=== PATIENT | female | born 1960 | race Caucasian/White ===

== ENCOUNTER 2019-10-03 03:21 | Observation (INO) | payer OTHER ==
[~2019-10-03] VITALS: Ht 167.6 cm; Wt 61.2 kg
[2019-10-03] MEDS ORDERED: ASPIRIN 325 MG TABLET ONE (03:41)
[2019-10-03 04:12] LABS: BASOPHILS % (AUTO) 0.3 % (0.0-5.0); EOSINOPHILS % (AUTO) 3.7 % (0.0-8.0); HEMATOCRIT 37.4 % (36-48); LYMPHOCYTES % (AUTO) 47.1 % (21.0-51.0); MEAN CORPUSCULAR HEMOGLOBIN 29.9 pg (27.0-33.0); MEAN CORPUSCULAR HGB CONC 33.2 g/dL (32.0-36.0); MEAN CORPUSCULAR VOLUME 90.1 fL (79-99); MONOCYTES % (AUTO) 6.3 % (3.0-13.0); NEUTROPHILS % (AUTO) 42.4 % (40.0-77.0); PLATELET COUNT (AUTO) 269 K/uL (130-400); RED BLOOD CELL COUNT(AUTO) 4.15 MIL/uL (4.00-5.50); RED CELL DISTRIBUTION WIDTH 12.7 % (11.0-15.5); WHITE BLOOD COUNT (AUTO) 8.9 K/uL (4.8-10.8)
[2019-10-03] MEDS ORDERED: DILTIAZEM HCL 125 MG/25 ML VIAL IV ONE (04:18)
[2019-10-03] MEDS ORDERED: SODIUM CHLORIDE 0.9% 100 ML IV ONE (04:19)
[2019-10-03 04:21] LABS: BILIRUBIN,TOTAL 0.2 mg/dL (0.2-1.0); CREATININE 0.8 mg/dL (0.5-1.5); POTASSIUM 4.1 mmol/L (3.5-5.1); TOTAL PROTEIN, SERUM 7.2 g/dL (6.0-8.3)
[2019-10-03 04:24] LABS: INR 0.94 (0.85-1.15); PARTIAL THROMBOPLASTIN TIME 25.4 SEC (26.3-35.5); PROTHROMBIN TIME 9.9 SEC (9.6-11.6)
[2019-10-03 04:31] LABS: B-TYPE NATRIURETIC PEPTIDE 48 pg/mL (0-100)
[2019-10-03] MEDS ORDERED: SODIUM CHLORIDE 0.9% 500ML 500 ML IV ONE (05:04)
[2019-10-03] MEDS ORDERED: MAG HYDROX/AL HYDROX/SIMETH ES 30 ML SUSP UDCUP PO PRN (05:45)
[2019-10-03] MEDS ORDERED: DILTIAZEM HCL 125 MG/25 ML 125 MG in SODIUM CHLORIDE 0.9% 100 ML IV SCH (05:45)
[2019-10-03] MEDS ORDERED: ONDANSETRON HCL 4 MG/2 ML VIAL IV PRN (05:45)
[2019-10-03] MEDS ORDERED: ACETAMINOPHEN 325 MG TAB PO PRN ×2 (05:45)
[2019-10-03 07:15] LABS: AMPHET/METH SCREEN,URINE NEGATIVE (NEGATIVE); BARBITURATE SCREEN, URINE NEGATIVE (NEGATIVE); BENZODIAZEPINES SCREEN,URINE POSITIVE (NEGATIVE); CANNABINOID SCREEN,URINE NEGATIVE (NEGATIVE); COCAINE SCREEN,URINE NEGATIVE (NEGATIVE); OPIATE SCREEN,URINE NEGATIVE (NEGATIVE); PHENCYCLIDINE SCREEN,URINE NEGATIVE (NEGATIVE)
[2019-10-03] MEDS ORDERED: ENOXAPARIN SODIUM 30 MG/0.3 ML SQ ONE (08:33)
[2019-10-03] MEDS ORDERED: SODIUM CHLORIDE 0.9% 1000ML 1,000 ML IV ONE (11:10)
[2019-10-03] MEDS ORDERED: SODIUM CHLORIDE 0.9% 250 ML IV ONE (11:11)
[2019-10-03 19:54] VITALS: BP 107/60
[2019-10-03] MEDS: ASPIRIN 325 MG TABLET PO SCH (22:40)
[2019-10-03] MEDS: ENOXAPARIN SODIUM 30 MG/0.3 ML SQ SCH (22:40)
[2019-10-03 23:07] VITALS: BP 115/62
[2019-10-04] MEDS: SODIUM CHLORIDE 0.9% 1000ML 1,000 ML IV SCH ×3 (00:35→13:55)
[2019-10-04 04:23] LABS: BASOPHILS % (AUTO) 0.3 % (0.0-5.0); EOSINOPHILS % (AUTO) 5.1 % (0.0-8.0); HEMATOCRIT 31.6 % (36-48); LYMPHOCYTES % (AUTO) 37.6 % (21.0-51.0); MEAN CORPUSCULAR HEMOGLOBIN 29.9 pg (27.0-33.0); MEAN CORPUSCULAR VOLUME 93.5 fL (79-99); MONOCYTES % (AUTO) 7.3 % (3.0-13.0); NEUTROPHILS % (AUTO) 49.5 % (40.0-77.0); PLATELET COUNT (AUTO) 216 K/uL (130-400); RED BLOOD CELL COUNT(AUTO) 3.38 MIL/uL (4.00-5.50); RED CELL DISTRIBUTION WIDTH 12.9 % (11.0-15.5); WHITE BLOOD COUNT (AUTO) 6.4 K/uL (4.8-10.8)
[2019-10-04 04:38] LABS: CREATININE 0.8 mg/dL (0.5-1.5); MAGNESIUM 2.1 mg/dL (1.80-2.40); POTASSIUM 4.2 mmol/L (3.5-5.1)
[2019-10-04 04:49] VITALS: BP 109/50
[2019-10-04 07:00] VITALS: BP 101/65
[2019-10-04] MEDS ORDERED: PROPAFENONE HCL 150 MG TABLET PO SCH (09:00)
[2019-10-04] MEDS: ASPIRIN 325 MG TABLET PO SCH (09:34)
[2019-10-04] MEDS: ENOXAPARIN SODIUM 30 MG/0.3 ML SQ SCH (09:36)
[2019-10-04] MEDS ORDERED: ASPI-1012 PO (10:11)
[2019-10-04] MEDS ORDERED: PROP150T28 PO (10:11)
[2019-10-04 11:00] VITALS: BP 110/69
[2019-10-04 15:00] VITALS: BP 112/79
== END 2019-10-04 18:02 | disposition home or self-care (01) ==
LOC: EDH 03:21 → EDHIP 05:45 → 2AH 19:28
PROVIDERS: ADMIT Internal Medicine; ATTEND Internal Medicine
DX: I48.0 Paroxysmal atrial fibrillation (principal); F32.9 Major depressive disorder, single episode, unspecified; F41.9 Anxiety disorder, unspecified; R42 Dizziness and giddiness; E87.0 Hyperosmolality and hypernatremia; Z79.899 Other long term (current) drug therapy; Z98.51 Tubal ligation status; Z88.2 Allergy status to sulfonamides; Z88.5 Allergy status to narcotic agent
CPT/HCPCS: 36415 ×2; 71045; 80048; 80053; 80305; 82550; 83735; 83880; 84439; 84443; 84481; 84484; 85025 ×2; 85610; 85730; 93005 ×3; 93306; 96360; 96361; 96372; 99291; G0378 ×36; J1650 ×2; J3490; J7030 ×3; J7040

== ENCOUNTER → 2021-05-06 | Outpatient (CLI) | payer BC, OTHER ==
[~2021-05-06] MED LIST: PROP150T28 PO
== END | disposition home or self-care (01) ==
LOC: RAH 14:04
PROVIDERS: ATTEND Family Medicine
DX: N28.1 Cyst of kidney, acquired (principal); N32.89 Other specified disorders of bladder
CPT/HCPCS: 74176

== ENCOUNTER → 2024-01-17 | Outpatient (CLI) | payer BC ==
[~2024-01-17] MED LIST changes: +APIX5TAB PO; +ARIP5TAB30 PO; +CEFD300C3 PO; +DIGO125T71 PO; +DRON400T7 PO; -PROP150T28 PO; +ROSU10TA28 PO; +SERT-439 PO
[2024-01-17 16:12] LABS: BASOPHILS # (AUTO) 0.02 K/uL (0.00-0.20); BASOPHILS % (AUTO) 0.3 % (0.0-5.0); EOSINOPHILS # (AUTO) 0.14 K/uL (0.00-0.70); EOSINOPHILS % (AUTO) 2.2 % (0.0-8.0); HEMATOCRIT 36.4 % (36-48); IMMATURE GRANULOCYTE ABSOLUTE 0.01 K/uL (0-1); LYMPHOCYTES # (AUTO) 2.6 K/uL (1.0-4.8); LYMPHOCYTES % (AUTO) 40.8 % (21.0-51.0); MEAN CORPUSCULAR HEMOGLOBIN 31.4 pg (27.0-33.0); MEAN CORPUSCULAR HGB CONC 32.7 g/dL (32.0-36.0); MONOCYTES # (AUTO) 0.4 K/uL (0.1-1.0); MONOCYTES % (AUTO) 6.7 % (3.0-13.0); NEUTROPHILS # (AUTO) 3.2 K/uL (1.8-7.7); NEUTROPHILS % (AUTO) 49.8 % (40.0-77.0); PLATELET COUNT (AUTO) 213 K/uL (130-400); RED BLOOD CELL COUNT(AUTO) 3.79 MIL/uL (4.00-5.50); RED CELL DISTRIBUTION WIDTH 13.7 % (11.0-15.5); WHITE BLOOD COUNT (AUTO) 6.4 K/uL (4.8-10.8)
== END | disposition home or self-care (01) ==
LOC: LAB 11:42
PROVIDERS: ATTEND Internal Medicine Cardiovascular Disease
DX: D64.89 Other specified anemias (principal)
CPT/HCPCS: 36415; 85025

== ENCOUNTER 2024-02-24 07:34 | Emergency (ER) | payer BC, MEDICARE ==
[~2024-02-24] VITALS: Ht 167.6 cm; Wt 65.8 kg
[~2024-02-24 07:34] MED LIST changes: -ROSU10TA28 PO; +ROSU10TA72 PO
[2024-02-24 07:53] LABS: BASOPHILS # (AUTO) 0.02 K/uL (0.00-0.20); BASOPHILS % (AUTO) 0.2 % (0.0-5.0); EOSINOPHILS # (AUTO) 0.12 K/uL (0.00-0.70); EOSINOPHILS % (AUTO) 1.4 % (0.0-8.0); HEMATOCRIT 40.5 % (36-48); IMMATURE GRANULOCYTE ABSOLUTE 0.01 K/uL (0-1); LYMPHOCYTES # (AUTO) 3.1 K/uL (1.0-4.8); MEAN CORPUSCULAR HEMOGLOBIN 30.6 pg (27.0-33.0); MEAN CORPUSCULAR HGB CONC 33.8 g/dL (32.0-36.0); MEAN CORPUSCULAR VOLUME 90.6 fL (79-99); MONOCYTES # (AUTO) 0.6 K/uL (0.1-1.0); MONOCYTES % (AUTO) 7.6 % (3.0-13.0); NEUTROPHILS # (AUTO) 4.5 K/uL (1.8-7.7); NEUTROPHILS % (AUTO) 53.7 % (40.0-77.0); PLATELET COUNT (AUTO) 232 K/uL (130-400); RED BLOOD CELL COUNT(AUTO) 4.47 MIL/uL (4.00-5.50); RED CELL DISTRIBUTION WIDTH 13.4 % (11.0-15.5); WHITE BLOOD COUNT (AUTO) 8.4 K/uL (4.8-10.8)
[2024-02-24 08:05] LABS: CREATININE 0.9 mg/dL (0.5-1.0); POTASSIUM 4.6 mmol/L (3.5-5.1)
[2024-02-24 08:12] LABS: BILIRUBIN,TOTAL 0.3 mg/dL (0.2-1.0); DIGOXIN 0.46 ng/mL (0.50-2.00); TOTAL PROTEIN, SERUM 7.6 g/dL (6.0-8.3)
[2024-02-24] MEDS: ADENOSINE 6MG VIAL IV ONE ×2 (08:23→08:24)
[2024-02-24 08:25] LABS: B-TYPE NATRIURETIC PEPTIDE 324 pg/mL (0-100)
[2024-02-24] MEDS ORDERED: AMIODARONE 900MG VIAL 450 MG in DEXTROSE 5%-WATER 250 ML IV PRN (08:30)
[2024-02-24] MEDS ORDERED: AMIODARONE 900MG VIAL 900 MG in DEXTROSE 5%-WATER 200 ML IV PRN (08:30)
[2024-02-24] MEDS ORDERED: AMIODARONE 900MG VIAL 150 MG in DEXTROSE 5%-WATER 100 ML IV PRN (08:30)
[2024-02-24] MEDS: VERAPAMIL HCL 240 MG SRTAB PO SCH (09:11)
[2024-02-24] MEDS: PROPOFOL 1000 MG/100 ML 0 ML IV ONE (09:46)
[2024-02-24] MEDS: PROPOFOL 10 MG/ML 20ML VIAL IV ONE (10:22)
[2024-02-24 11:50] VITALS: BP 127/62; PULSE 68; RESP 17; O2SAT 97
[2024-02-24] MEDS ORDERED: SERT-440 PO ×2 (16:38)
[2024-02-24] MEDS ORDERED: ARIP5TAB16 PO ×2 (16:38)
[2024-02-24] MEDS ORDERED: VERA120T20 PO ×2 (16:38)
[2024-02-24] MEDS ORDERED: TEMA15CA PO ×2 (16:38)
[2024-02-24] MEDS ORDERED: FERR324T10 PO ×2 (16:38)
== END 2024-02-24 12:16 | disposition home or self-care (01) ==
LOC: EDH 07:34
DX: I48.91 Unspecified atrial fibrillation (principal); Z79.899 Other long term (current) drug therapy; Z98.890 Other specified postprocedural states; Z88.2 Allergy status to sulfonamides; Z88.5 Allergy status to narcotic agent
CPT/HCPCS: 99284; 96374; 71045; 80162; 82550; 84484 ×2; 80053; 83880; 85025; 36415; 93005 ×3; J0153; J2704; J3490

== ENCOUNTER 2024-02-28 07:22 | Inpatient (IN) | payer BC, MEDICARE ==
[2024-02-24 14:59] LABS: BASOPHILS # (AUTO) 0.02 K/uL (0.00-0.20); BASOPHILS % (AUTO) 0.3 % (0.0-5.0); EOSINOPHILS # (AUTO) 0.15 K/uL (0.00-0.70); EOSINOPHILS % (AUTO) 2.1 % (0.0-8.0); HEMATOCRIT 37.4 % (36-48); IMMATURE GRANULOCYTE ABSOLUTE 0.02 K/uL (0-1); LYMPHOCYTES # (AUTO) 2.5 K/uL (1.0-4.8); LYMPHOCYTES % (AUTO) 35.4 % (21.0-51.0); MEAN CORPUSCULAR HEMOGLOBIN 30.6 pg (27.0-33.0); MEAN CORPUSCULAR HGB CONC 33.2 g/dL (32.0-36.0); MEAN CORPUSCULAR VOLUME 92.3 fL (79-99); MONOCYTES # (AUTO) 0.5 K/uL (0.1-1.0); NEUTROPHILS # (AUTO) 3.9 K/uL (1.8-7.7); NEUTROPHILS % (AUTO) 54.9 % (40.0-77.0); PLATELET COUNT (AUTO) 231 K/uL (130-400); RED BLOOD CELL COUNT(AUTO) 4.05 MIL/uL (4.00-5.50); RED CELL DISTRIBUTION WIDTH 13.6 % (11.0-15.5)
[2024-02-24 15:05] VITALS: BP 97/54; PULSE 77; RESP 18
[2024-02-24 15:16] LABS: CREATININE 1.1 mg/dL (0.5-1.0); POTASSIUM 3.6 mmol/L (3.5-5.1)
[2024-02-24 15:24] LABS: INR <= 0.93 (0.85-1.15)
[2024-02-24 15:26] LABS: PARTIAL THROMBOPLASTIN TIME 26.3 SEC (26.3-35.5)
[2024-02-28] VITALS (29 sets, daily range): BP systolic 94–139; BP diastolic 53–93; PULSE 63–172; RESP 14–20; O2SAT 97–98
[~2024-02-28] VITALS: Ht 167.6 cm; Wt 69.2 kg
[~2024-02-28 07:22] MED LIST changes: +ARIP5TAB16 PO; +FERR324T10 PO; +SERT-440 PO; +TEMA15CA PO; +VERA120T20 PO
[2024-02-28] MEDS ORDERED: MIDAZOLAM HCL 1 MG/ML 2ML VIAL ONE (08:00)
[2024-02-28] MEDS ORDERED: PROPOFOL 10 MG/ML 20ML VIAL IV ONE (08:00)
[2024-02-28] MEDS ORDERED: ROCURONIUM BROMIDE 10MG/1ML 5ML VL ONE (08:00)
[2024-02-28] MEDS ORDERED: FENTANYL CITRATE PF 50 MCG/1 ML 2ML VIAL ONE ×2 (08:00→08:20)
[2024-02-28] MEDS ORDERED: HEPARIN 10,000 UNIT/10ML (1,000 UNIT/ML) VIAL ONE ×2 (08:05→09:25)
[2024-02-28] MEDS ORDERED: LIDOCAINE HCL 400MG/20ML VIAL ONE (08:05)
[2024-02-28] MEDS ORDERED: PHENYLEPHRINE HCL 10 MG/ML 1ML VIAL IV ONE ×2 (08:11→13:25)
[2024-02-28] MEDS: 0.9%NACL 1000ML 1,000 ML IV ONE (08:12)
[2024-02-28] MEDS ORDERED: ATROPINE 1MG SYG IVP ONE (13:14)
[2024-02-28 13:25] LABS: ABG BASE EXCESS -3.7 mmol/L (-2.0-3.0); ABG HCO3 20.2 mmol/L (21.0-28.0); ABG OXYGEN SATURATION 99.4 % (95.0-99.0); ABG PCO2 33 mmHg (32-45); ABG PH 7.401 (7.35-7.450); CARBON MONOXIDE 0.2; HHb 0.6; PO2, ARTERIAL BG 385.8 mmHg (83.0-108.0); VENT MODE, BG CATH LAB VENT (ROOM AIR)
[2024-02-28] MEDS ORDERED: PROTAMINE SULFATE 10 MG/ML 5 ML VIAL ONE (13:39)
[2024-02-28] MEDS ORDERED: GLYCOPYRROLATE 0.2 MG/ML 5 ML VIAL ONE (14:11)
[2024-02-28] MEDS ORDERED: NEOSTIGMINE METHYLSULFATE 1MG/ML IV ONE (14:11)
[2024-02-28] MEDS: DILTIAZEM 25MG INJ IVP PRN (16:23)
[2024-02-28] MEDS ORDERED: DILTIAZEM IV PRN (16:30)
[2024-02-28] MEDS ORDERED: [UNRECOGNIZED DRUG - OTHER] IV PRN (16:30)
[2024-02-28] MEDS: AMIODARONE 900MG VIAL 150 MG in DEXTROSE 5%-WATER 100 ML IV SCH ×2 (17:15→19:57)
[2024-02-28] MEDS: AMIODARONE 900MG VIAL 360 MG in DEXTROSE 5%-WATER 200 ML IV SCH (18:32)
[2024-02-28] MEDS: DILTIAZEM 125 MG/25 ML INJ 125 MG in 0.9%NACL 100ML 100 ML IV PRN (20:02)
[2024-02-28] MEDS ORDERED: NON-FORMULARY MEDICATION 1 EACH (Rosuvastatin Calcium 10 MG) PO SCH (21:00)
[2024-02-28] MEDS: APIXABAN 5 MG TABLET PO SCH (22:01)
[2024-02-28] MEDS: ATORVASTATIN 40 MG TABLET PO SCH (22:01)
[2024-02-28] MEDS: TEMAZEPAM 15 MG CAPSULE PO SCH (22:49)
[2024-02-28 22:50] LABS: HEMATOCRIT 37.2 % (36-48); MEAN CORPUSCULAR HEMOGLOBIN 30.9 pg (27.0-33.0); MEAN CORPUSCULAR HGB CONC 33.6 g/dL (32.0-36.0); MEAN CORPUSCULAR VOLUME 91.9 fL (79-99); RED BLOOD CELL COUNT(AUTO) 4.05 MIL/uL (4.00-5.50); RED CELL DISTRIBUTION WIDTH 13.2 % (11.0-15.5); WHITE BLOOD COUNT (AUTO) 10.9 K/uL (4.8-10.8)
[2024-02-28 23:00] LABS: CREATININE 0.8 mg/dL (0.5-1.0); MAGNESIUM 1.8 mg/dL (1.80-2.40)
[2024-02-28] MEDS ORDERED: AMIODARONE 900MG VIAL 540 MG in DEXTROSE 5%-WATER 300 ML IV SCH (23:00)
[2024-02-29] VITALS (8 sets, daily range): BP systolic 97–105; BP diastolic 52–69; PULSE 60–69; RESP 18; O2SAT 96–97
[2024-02-29] MEDS: AMIODARONE 900MG VIAL 540 MG in DEXTROSE 5%-WATER 300 ML IV ONE (02:08)
[2024-02-29] MEDS: MAGNESIUM 2GM PREMIX 50ML 50 ML IV ONE (03:35)
[2024-02-29] MEDS: MAGNESIUM 2GM PREMIX 50ML 50 ML IV PRN (03:49)
[2024-02-29] MEDS ORDERED: VERAPAMIL HCL 120 MG PO SCH (09:00)
[2024-02-29] MEDS ORDERED: NON-FORMULARY MEDICATION 1 EACH (Sertraline HCl 100 MG) PO SCH (09:00)
[2024-02-29] MEDS: SERTRALINE HCL 50 MG TABLET PO SCH (09:18)
[2024-02-29] MEDS: VERAPAMIL HCL 240 MG SRTAB PO SCH (09:18)
[2024-02-29] MEDS: ARIPIPRAZOLE 5 MG TABLET PO SCH (09:18)
[2024-02-29] MEDS: FERROUS FUMARATE 324 MG TABLET PO SCH (09:19)
[2024-02-29] MEDS ORDERED: AMIO200T68 PO ×2 (12:57)
[2024-02-29] MEDS ORDERED: VERA120T92 PO ×2 (12:57)
== END 2024-02-29 23:58 | disposition home or self-care (01) | DRG 274 ==
LOC: DAH 07:22 → OBSVTOIN 07:23 → DAH 07:23 → DAHIP 07:23 → 2AH 15:44
PROVIDERS: ADMIT Internal Medicine Cardiovascular Disease; ATTEND Internal Medicine Cardiovascular Disease
PROC: 5A2204Z Restoration of Cardiac Rhythm, Single (ICD-10-PCS; principal; 2024-02-24)
PROC: 02583ZZ Destruction of Conduction Mechanism, Percutaneous Approach (ICD-10-PCS; 2024-02-28)
PROC: 02K83ZZ Map Conduction Mechanism, Percutaneous Approach (ICD-10-PCS; 2024-02-28)
DX: I47.19 Other supraventricular tachycardia (principal); I48.0 Paroxysmal atrial fibrillation; E78.5 Hyperlipidemia, unspecified; I44.7 Left bundle-branch block, unspecified; F32.A Depression, unspecified; Z79.01 Long term (current) use of anticoagulants
CPT/HCPCS: 36415; 80048; 82435; 82803; 82947; 83605; 83735; 84132; 84295; 85018; 85025; 85027; 85347; 85610; 85730; 93005; 93462; 93653; 93655; 93662; A4344; A4606; C1893; C1894; G0378; J0282; J0461; J1644; J2250; J2371; J2704; J2710; J2720; J3010; J3475; J3490; J7030; J7060; A4215; A4216; A4221; A4222; A4223; A4649; A4663; C1731; C1732

== ENCOUNTER → 2024-04-23 | Outpatient (CLI) | payer BC, OTHER ==
[~2024-04-23] MED LIST changes: +AMIO200T68 PO; -ARIP5TAB30 PO; -CEFD300C3 PO; -DIGO125T71 PO; -DRON400T7 PO; -SERT-439 PO; -VERA120T20 PO; +VERA120T92 PO
[2024-04-23] MEDS: REGADENOSON 0.4 MG/5 ML PF SYG IVP ONE (12:51)
== END | disposition home or self-care (01) ==
LOC: SHCH 08:22
PROVIDERS: ATTEND Internal Medicine Cardiovascular Disease
DX: I48.0 Paroxysmal atrial fibrillation (principal)
CPT/HCPCS: 78452; 93017; J2785; A9500 ×2; 96374

== ENCOUNTER → 2024-05-21 | Outpatient (CLI) | payer OTHER ==
[2024-05-21 12:52] LABS: ALBUMIN 4.1 g/dL (3.5-5.0); BILIRUBIN,TOTAL 0.4 mg/dL (0.2-1.0); POTASSIUM 4.1 mmol/L (3.5-5.1); TOTAL PROTEIN, SERUM 7.8 g/dL (6.0-8.3)
== END | disposition home or self-care (01) ==
LOC: LAB 09:07
PROVIDERS: ATTEND Student in an Organized Health Care Education/Training Program
DX: I48.0 Paroxysmal atrial fibrillation (principal); R07.89 Other chest pain
CPT/HCPCS: 36415; 80053

== ENCOUNTER → 2024-05-31 | Outpatient (CLI) | payer OTHER ==
[~2024-05-31] MED LIST changes: +IOHEXOL 350 MG/ML 100ML INFUS..BTL IV ONE; +METOPROLOL TARTRATE 1 MG/ML 5ML VIAL IV ONE
== END | disposition home or self-care (01) ==
LOC: RAH 10:18
PROVIDERS: ATTEND Student in an Organized Health Care Education/Training Program
DX: R07.9 Chest pain, unspecified (principal); M47.815 Spondylosis without myelopathy or radiculopathy, thoracolumbar region
CPT/HCPCS: 75574; J3490; Q9967

== ENCOUNTER → 2024-06-29 | Outpatient (CLI) | payer OTHER ==
[~2024-06-29] MED LIST changes: -IOHEXOL 350 MG/ML 100ML INFUS..BTL IV ONE; -METOPROLOL TARTRATE 1 MG/ML 5ML VIAL IV ONE
== END | disposition home or self-care (01) ==
LOC: LAB 10:07
PROVIDERS: ATTEND Student in an Organized Health Care Education/Training Program
DX: I48.0 Paroxysmal atrial fibrillation (principal)
CPT/HCPCS: 36415; 83521; 84155; 84156; 84165; 84166

== ENCOUNTER → 2024-07-17 | Outpatient (CLI) | payer OTHER ==
[2024-07-17 12:02] LABS: BASOPHILS # (AUTO) 0.01 K/uL (0.00-0.20); BASOPHILS % (AUTO) 0.2 % (0.0-5.0); EOSINOPHILS # (AUTO) 0.15 K/uL (0.00-0.70); EOSINOPHILS % (AUTO) 2.9 % (0.0-8.0); HEMATOCRIT 35.5 % (36-48); LYMPHOCYTES # (AUTO) 1.9 K/uL (1.0-4.8); LYMPHOCYTES % (AUTO) 36.3 % (21.0-51.0); MEAN CORPUSCULAR HEMOGLOBIN 31.2 pg (27.0-33.0); MEAN CORPUSCULAR HGB CONC 32.4 g/dL (32.0-36.0); MEAN CORPUSCULAR VOLUME 96.2 fL (79-99); MONOCYTES # (AUTO) 0.4 K/uL (0.1-1.0); MONOCYTES % (AUTO) 6.9 % (3.0-13.0); NEUTROPHILS # (AUTO) 2.8 K/uL (1.8-7.7); NEUTROPHILS % (AUTO) 53.7 % (40.0-77.0); PLATELET COUNT (AUTO) 227 K/uL (130-400); RED BLOOD CELL COUNT(AUTO) 3.69 MIL/uL (4.00-5.50); RED CELL DISTRIBUTION WIDTH 12.8 % (11.0-15.5); WHITE BLOOD COUNT (AUTO) 5.2 K/uL (4.8-10.8)
[2024-07-17 12:22] LABS: ALBUMIN 3.9 g/dL (3.5-5.0); BILIRUBIN,TOTAL 0.3 mg/dL (0.2-1.0); POTASSIUM 4.2 mmol/L (3.5-5.1); THYROID STIMULATING HORMONE 1.12 uIU/mL (0.36-3.74); TOTAL PROTEIN, SERUM 7.6 g/dL (6.0-8.3)
== END | disposition home or self-care (01) ==
LOC: LAB 08:16
PROVIDERS: ATTEND Student in an Organized Health Care Education/Training Program
DX: E78.2 Mixed hyperlipidemia (principal); I48.0 Paroxysmal atrial fibrillation
CPT/HCPCS: 36415; 80053; 80061; 84443; 85025

== ENCOUNTER 2024-09-30 07:26 | Inpatient (IN) | payer OTHER ==
[~2024-09-30] VITALS: Ht 167.6 cm; Wt 68.5 kg
[~2024-09-30 07:26] MED LIST changes: -ARIP5TAB16 PO; +ARIP5TAB51 PO; +CRESTOR PO; +SERT-439 PO; -VERA120T92 PO
[2024-09-30] MEDS: dilTIAZem 25MG INJ IVP ONE (08:06)
[2024-09-30] MEDS: 0.9%NACL 1000ML 1,000 ML IV ONE (08:06)
--- NOTE | 2024-09-30 08:10 | NUR ---
PTS HR DECREASED TO 78 BPM AFTER CARDIZEM IV
[2024-09-30 08:13] LABS: BASOPHILS # (AUTO) 0.02 K/uL (0.00-0.20); BASOPHILS % (AUTO) 0.3 % (0.0-5.0); EOSINOPHILS # (AUTO) 0.16 K/uL (0.00-0.70); EOSINOPHILS % (AUTO) 2.7 % (0.0-8.0); HEMATOCRIT 39.9 % (36-48); IMMATURE GRANULOCYTE ABSOLUTE 0.02 K/uL (0-1); LYMPHOCYTES % (AUTO) 33.8 % (21.0-51.0); MEAN CORPUSCULAR HEMOGLOBIN 31.6 pg (27.0-33.0); MEAN CORPUSCULAR HGB CONC 33.6 g/dL (32.0-36.0); MEAN CORPUSCULAR VOLUME 94.1 fL (79-99); MONOCYTES # (AUTO) 0.4 K/uL (0.1-1.0); MONOCYTES % (AUTO) 6.2 % (3.0-13.0); NEUTROPHILS # (AUTO) 3.4 K/uL (1.8-7.7); NEUTROPHILS % (AUTO) 56.7 % (40.0-77.0); PLATELET COUNT (AUTO) 231 K/uL (130-400); RED BLOOD CELL COUNT(AUTO) 4.24 MIL/uL (4.00-5.50); RED CELL DISTRIBUTION WIDTH 13.2 % (11.0-15.5)
[2024-09-30 08:26] LABS: CREATININE 0.9 mg/dL (0.5-1.0)
--- NOTE | 2024-09-30 08:28 | ERN ---
General Chief Complaint: Palpitations Stated Complaint: PALPITATIONS Time Seen by MD: 07:28 History of Present Illness Initial Comments Is 3-year-old female history of atrial fibrillation came in for palpitations. Patient denies chest pain since he with the symptoms. Patient denies shortness or breath. Patient otherwise has no concerns. Allergies: Coded Allergies: Sulfa (Sulfonamide Antibiotics) (Verified Allergy, Unknown, 10/03/19) codeine (Verified Allergy, Unknown, 10/03/19) Home Meds Active Scripts Amiodarone HCl (Amiodarone HCl) 200 Mg Tablet, 200 MG PO BID, #60 TAB 3 Refills Prov:LOUANN BLANKENSHIP MD 02/29/24 Reported Medications Aripiprazole (Aripiprazole) 5 Mg Tablet, 2 MG PO DAILY, TAB 09/19/24 Sertraline HCl (Sertraline HCl) 50 Mg Tablet, 50 MG PO BID, TAB 09/19/24 Temazepam (Temazepam) 15 Mg Capsule, 1 CAP PO HS for 30 Days, #30 CAP 0 Refills 09/14/24 [Crestor] No Conflict Check, 10 MG PO HS 09/14/24 Sertraline HCl (Sertraline HCl) 100 Mg Tablet, 1 TAB PO HS for 30 Days, #30 TAB 0 Refills 09/14/24 Apixaban (Eliquis) 5 Mg Tablet, 1 TAB PO BID for 30 Days, #60 TAB 0 Refills 09/14/24 Ferrous Fumarate (Hemocyte) 324 Mg (106 Mg Iron) Tablet, 324 MG PO DAILY, TAB 02/24/24 Rosuvastatin Calcium (Rosuvastatin Calcium) 10 Mg Tablet, 10 MG PO HS, TAB 01/11/24 Past Medical History Past Medical History: A-Fib, Other Medical History Other: HEART BLOCK, TACHYCARDIA, CARDIAC WINDOW Past Surgical History: Other Surgical History Other: CARDIAC WINDOW Social History Social History: Negative ROS Dictation CONSTITUTIONAL: Negative except for HPI HEAD/FACE: Negative except for HPI EENT: Negative except for HPI RESPIRATORY: Negative except for HPI GASTROINTESTINAL/ABDOMINAL: Negative except for HPI GENITOURINARY: Negative except for HPI MUSCULOSKELETAL: Negative except for HPI INTEGUMENTARY: Negative except for HPI NEUROLOGICAL/PSYCH: Negative except for HPI HEMATOLOGIC/LYMPHATIC: Negative except for HPI All Systems Negative, Except as noted above. 13 point review of systems assessed and all negative except for above. Physical Exam Physical Exam Dictation Vital Signs reviewed General Appearance: Alert, oriented x 3, no acute distress, well developed, nourished. Head and Face: non-traumatic. Eyes: PERRL, pink conjunctivas, eyelid no trauma, anterior chamber with arcus senilis. Ears: Pinnas intact and no signs of trauma or erythema ear canals clear and no discharge TM no erythema Nose: No discharge, no bleeding. Oropharynx: Mouth normal, tongue pink, pharynx clear,no erythema, tonsils no exudates, no abscesses noted, mucous membrane moist Neck: Supple, non-tender, no thyromegaly, no masses, no JVD, no bruits Breast:Deferred Chest:No tenderness, no crepitus, no paradoxical movement, no retractions Lungs:Clear, well-ventilated, symmetric, no rales, no wheezing, no rhonchi, no stridor, good breath sounds bilaterally Heart: Regular rate, regular rhythm, no murmur, no gallops Vascular: no peripheral edema, Abdomen: Soft, positive bowel sounds, nondistended, no guarding, nontender, no rebound, no masses no hepatomegaly, no splenomegaly, no St's sign, no hernias. Rectal: Deferred Genital: Deferred Neurological: Normal speech, motor function intact, sensory function intact Musculoskeletal: Neck nontender, full range of motion, back nontender, full range of motion, Extremities: nontender, full range of motion Skin: Color pink, dry, no turgor, no rash, no lacerations, no abrasions, no contusions. Lymphatic: Deferred Results Laboratory and Microbiology Lab and Micro Result Laboratory Tests Test 09/30/24 08:05 White Blood Count 6.0 K/uL (4.8-10.8) Red Blood Count 4.24 MIL/uL (4.00-5.50) Hemoglobin 13.4 g/dL (12.0-16.0) Hematocrit 39.9 % (36-48) Mean Corpuscular Volume 94.1 fL (79-99) Mean Corpuscular Hemoglobin 31.6 pg (27.0-33.0) Mean Corpuscular Hemoglobin Concent 33.6 g/dL (32.0-36.0) Red Cell Distribution Width 13.2 % (11.0-15.5) Platelet Count 231 K/uL (130-400) Mean Platelet Volume 9.4 fL (7.5-10.5) Immature Granulocyte % (Auto) 0.3 % (0-1) Neutrophils (%) (Auto) 56.7 % (40.0-77.0) Lymphocytes (%) (Auto) 33.8 % (21.0-51.0) Monocytes (%) (Auto) 6.2 % (3.0-13.0) Eosinophils (%) (Auto) 2.7 % (0.0-8.0) Basophils (%) (Auto) 0.3 % (0.0-5.0) Neutrophils # (Auto) 3.4 K/uL (1.8-7.7) Lymphocytes # (Auto) 2.0 K/uL (1.0-4.8) Monocytes # (Auto) 0.4 K/uL (0.1-1.0) Eosinophils # (Auto) 0.16 K/uL (0.00-0.70) Basophils # (Auto) 0.02 K/uL (0.00-0.20) Absolute Immature Granulocyte (auto 0.02 K/uL (0-1) Nucleated Red Blood Cells 0.0 % (0.0-0.19) Sodium Level 143 mmol/L (136-145) Potassium Level 4.0 mmol/L (3.5-5.1) Chloride Level 106 mmol/L (101-111) Carbon Dioxide Level 28 mmol/L (21-32) Blood Urea Nitrogen 20 mg/dL (7-18) H Creatinine 0.9 mg/dL (0.5-1.0) Glomerular Filtration Rate Calc 71 mL/min (>90) Random Glucose 99 mg/dL (70-105) Total Calcium 9.6 mg/dL (8.5-10.1) MDM MDM: Differential diagnosis: Rationale: Tests considered and ordered secondary to shared decision making include: Previous outside records reviewed: Old ER visits. Risk of complication and/or morbidity or mortality of patient management: None Medications-Per medication reconciliation Need for hospitalization: Patient does meet criteria for hospitalization. Need for emergency major/minor surgery: No There are no social concerns with this patient. Prescription drug management Prescriptions will include symptomatic care Patient's prior external medical records from other ER visits were reviewed by me as indicated. Prior testing and results from previous visits were reviewed. Prior tests were taken into account with medical decision making and resource utilization, independent historian/historians were used to obtain complete med ica history. I independently interpreted the test that were performed, results were reviewed by me and considered findings on radiology if ordered. Medical management and examination interpretation discussions were had by me with other qualified healthcare professionals as indicated for the patient's care. ED Course Orders Procedure Category Date Status Time 12 Lead Ekg Tracing- EKG 09/30/24 Logged Technical 07:40 Cbc With Differential LAB 09/30/24 Complete 07:40 Basic Metabolic Panel LAB 09/30/24 Complete 07:40 Pt And Ptt LAB 09/30/24 In Process 07:40 Troponin I High LAB 09/30/24 In Process Sensitivity 07:40 Urinalysis LAB 09/30/24 Logged W/Microscopic 07:40 Chest 1vw RAD 09/30/24 Taken 07:40 Diltiazem 50mg Inj PHA 09/30/24 Complete (Cardizem 50mg Inj) 08:00 0.9%Nacl 1000ml (Ns PHA 09/30/24 Complete 1000ml) 08:00 Diltiazem 25mg Inj PHA 09/30/24 In Process (Cardizem 25mg Inj) 08:30 12 Lead Ekg Tracing- EKG 09/30/24 Logged Technical 08:13 Current Medications Medications (Trade) Dose Ordered Sig/Braxton Route PRN Reason Start Time Stop Time Status Last Admin Dose Admin Diltiazem HCl (CARDIzem 25MG INJ) 17 mg ONCE ONCE IVP 09/30/24 08:30 09/30/24 08:31 09/30/24 08:06 Diltiazem HCl (CARDIzem 50MG INJ) 17 mg ONCE ONCE IV 09/30/24 08:00 09/30/24 08:00 DC Sodium Chloride 1,000 ml @ 0 mls/hr ONCE ONCE IV 09/30/24 08:00 09/30/24 08:01 DC 09/30/24 08:06 Vital Signs Date Time Temp Pulse Resp B/P (MAP) Pulse Ox O2 Delivery O2 Flow Rate FiO2 09/30/24 08:09 77 16 129/87 96 Room Air* 0 21 09/30/24 07:53 98.2 152 18 134/71 97 Room Air* 0 21 09/30/24 07:36 98.8 150 20 140/102 98 Room Air* 0 21 09/30/24 07:30 98.8 150 20 140/102 98 Room Air 0 DX & DISP Disposition: Inpatient Departure Impression: Primary Impression: Atrial fibrillation with rapid ventricular response Condition: Stable Referrals: KYLIE SALES MD (PCP) MADI FRANK MD Sep 30, 2024 08:28
[2024-09-30] MEDS ORDERED: LACTULOSE 20 GM/30 ML UDCUP PO PRN (08:30)
[2024-09-30] MEDS ORDERED: NITROGLYCERIN 0.4 MG SL TAB SL PRN (08:30)
[2024-09-30] MEDS ORDERED: doCUSate SODIUM 100 MG CAP PO PRN (08:30)
[2024-09-30] MEDS ORDERED: guaiFENesin SUGAR-FREE 100 MG/5 ML UDCUP PO PRN (08:30)
[2024-09-30] MEDS ORDERED: guaiFENesin-DM 200/20MG 10ML PO PRN (08:30)
[2024-09-30] MEDS ORDERED: BENZOCAINE/MENTH/CETYLPYRD CL 1 EACH LOZENGE MM PRN (08:30)
[2024-09-30] MEDS ORDERED: DiphenhydrAMINE HCL 25 MG CAPSULE PO PRN (08:30)
[2024-09-30] MEDS ORDERED: polyETHYLene GLYCol 3350 17 GM POWD.PACK PO PRN (08:30)
[2024-09-30] MEDS ORDERED: ondanSETRON 4MG INJ IV PRN (08:30)
[2024-09-30] MEDS ORDERED: ARTIFICAL TEARS SOL 15 ML OP PRN (08:30)
[2024-09-30] MEDS ORDERED: DiphenhydrAMINE HCL 50 MG/ML VIAL IV PRN (08:30)
[2024-09-30] MEDS ORDERED: MAG/ALUM/SIMETH 30 ML UDCUP PO PRN (08:30)
[2024-09-30] MEDS ORDERED: acetaMINOPHEN 325 MG TAB PO PRN (08:30)
--- NOTE | 2024-09-30 08:30 | HMCIMG ---
Exam Type: CHEST 1VW Clinical Information: Shortness of breath Comparison: None Findings: The lungs are clear of infiltrates. The heart is enlarged. Bony and soft tissue structures of the chest wall are unremarkable. IMPRESSION: Cardiomegaly. Clear lungs.
--- NOTE | 2024-09-30 08:31 | EKG ---
[facility] Test Date: 2024-09-30 Test Time: 08:10:06 Pat Name: ADELFO SANCHEZ Department: ED Room: 226 Gender: F Personnel Associate: [id number] : 1960 Requested By: MADI FRANK Order Number: [id number] Reading MD: Terry Zapata Measurements Intervals [place] Rate: 79 P: 55 OR: 235 QRS: 17 QRSD: 91 T: 97 QT: 384 QTc: 439 Interpretive Statements Sinus rhythm Prolonged OR interval Electronically Signed On 09-30-2024 17:02:24 PARTS SALESMAN by Terry Zapata Please click the below link to view image of tracing.
--- NOTE | 2024-09-30 08:31 | EKG ---
[facility] Test Date: 2024-09-30 Test Time: 07:53:39 Pat Name: ADELFO SANCHEZ Department: ED Room: 226 Gender: F Millinery Blocker: [id number] : 1960 Requested By: MADI FRANK Order Number: [id number] Reading MD: Terry Zapata Measurements Intervals [place] Rate: 154 P: 27 IA: 179 QRS: -48 QRSD: 137 T: 100 QT: 346 QTc: 553 Interpretive Statements SVT Possible AF with RVR Left bundle branch block ST elevation secondary to IVCD Electronically Signed On 09-30-2024 17:02:13 DIGITAL CONTENT SPECIALIST by Terry Zapata Please click the below link to view image of tracing.
[2024-09-30 08:35] LABS: INR <= 0.93 (0.85-1.15); PROTHROMBIN TIME 10.3 SEC (9.6-11.6)
[2024-09-30 08:36] LABS: PARTIAL THROMBOPLASTIN TIME 24.3 SEC (26.3-35.5)
[2024-09-30 08:51] LABS: APPEARANCE,URINE CLEAR (CLEAR); BILIRUBIN,URINE NEGATIVE (NEGATIVE); COLOR,URINE COLORLESS (YELLOW); GLUCOSE, URINE (UA) NEGATIVE (NEGATIVE); KETONES,URINE NEGATIVE (NEGATIVE); LEUKOCYTE ESTERASE ,URINE NEGATIVE Leu/uL (NEGATIVE); NITRATE,URINE NEGATIVE (NEGATIVE); OCCULT BLOOD,URINE MODERATE (NEGATIVE); PROTEIN,URINE NEGATIVE (NEGATIVE); UROBILINOGEN,URINE 0.2 mg/dL (0.2-1.0)
[2024-09-30] MEDS ORDERED: FAMOTIDINE 20MG VIAL IV SCH (09:00)
[2024-09-30] MEDS: FAMOTIDINE 20MG TAB PO SCH (10:20)
[2024-09-30] MEDS: INSULIN LISpro 100 UNIT/ML 3ML SQ SCH (11:30)
--- NOTE | 2024-09-30 11:32 | HP ---
[facility] HISTORY & PHYSICAL Date Patient Seen: Sep 30, 2024 Time of Visit: 11:15 Supervising Physician: [Dr. García] Primary Care Physician: [Dr. Castillo] Outpatient Specialists: [Dr. Dooley] Inpatient Consults: [] PROBLEM LIST: Atrial fibrillation with rapid ventricular response, resolved with diltiazem s/p cardiac ablation November 22, [address] Kenny s/p catheter ablation of the mid anterolateral right atrial focus with creation of cavotricuspid isthmus May 2024. Tachy-liliane syndrome, resolved Chronic diastolic heart failure- LVEF 55-60% in 09/20/2024 History of pericardial effusion with tamponade physiology s/p pericardial window Left bundle branch block HPI: This is a 63-year-old female with a history if AFib status post two ablations, sick sinus syndrome pending outpatient pacemaker who presented to the ED for evaluation of palpitations. Patient states was feeling dizzy Contin her check her blood pressure and found her heart rate in the 30s. States later her heart rate was in 150's range. She called her golf tournament consultant and was advised to come to the ED for evaluation. Patient was recently discharged on 09/21 with amiodarone 200 mg b.i.d., Eliquis 5 mg b.i.d. and diltiazem discontinued. She was pending an outpatient pacemaker on 09/24, however was unable to have it done at that time. She is now scheduled for ppm on 10/11/[address] Dooley. Her labs on admission were unremarkable with WBC of 6, hemoglobin 13, creatinine 0.9 without electrolyte derangement. Her troponin was five, TSH is 1.8 and INR 0.9. Her UA was negative for acute infection. Patient had an echocardiogram on 09/20 which revealed an EF of 55 to 60% and severe left atrial dilation, otherwise within normal limits. Her CXR on admission was within normal limits. Patient's EKG on admission showed sinus tachycardia with heart rate of 150 and a left bundle branch block and ST elevation secondary to IV CD. Her repeat EKG showed first-degree AV block with resolution is sinus tachycardia. Patient is currently chest pain free, denies any palpitations, weakness oriented dizziness. She is now in normal sinus rhythm with a heart rate in the 70s after diltiazem bolus. Her oral cardizem was discontinued upon discharge of her last visit on 09/21 d/t sick sinus syndrome. Patient states is pending an outpatient pacemaker placement on 10/11/2023. Will consult cardiology given recurrence of symptoms and pending procedure. PAST MEDICAL HX: see above PAST SURGICAL HX: noncontributory SOCIAL HISTORY: No tobacco, ETOH, or illicit drug use Coded Allergies: Sulfa (Sulfonamide Antibiotics) (Verified Allergy, Unknown, 10/03/19) codeine (Verified Allergy, Unknown, 10/03/19) REVIEW OF SYSTEMS: 12 point ROS reviewed with patient. Pertinent positives mentioned above. Otherwise negative. PHYSICAL EXAM: GENERAL: alert, weak, awake oriented x 3 HEENT: EOMI, Sclera non icteric, moist mucosa NECK: Supple, no JVD, trachea midline LUNGS: Clear breath sounds bilaterally. No wheezes HEART: Regular rate and rhythm. Normal S1 and S2, without murmurs ABD: Abdomen soft, nontender. Bowel sounds present EXT: No clubbing cyanosis or edema NEURO: Alert and oriented to person, follows commands Vital Signs (last 8hr) Date Time Temp Pulse Resp B/P (MAP) Pulse Ox O2 Delivery O2 Flow Rate FiO2 09/30/24 10:13 97.9 74 16 109/70 97 Room Air* 0 09/30/24 08:09 77 16 129/87 96 Room Air* 0 09/30/24 07:53 98.2 152 18 134/71 97 Room Air* 0 09/30/24 07:36 98.8 150 20 140/102 98 Room Air* 0 09/30/24 07:30 98.8 150 20 140/102 98 Room Air 0 LABS: Hematology Labs: Test 09/30/24 08:05 Range/Units White Blood Count 6.0 4.8-10.8 K/uL Red Blood Count 4.24 4.00-5.50 MIL/uL Hemoglobin 13.4 12.0-16.0 g/dL Hematocrit 39.9 36-48 % Mean Corpuscular Volume 94.1 79-99 fL Mean Corpuscular Hemoglobin 31.6 27.0-33.0 pg Mean Corpuscular Hemoglobin Concent 33.6 32.0-36.0 g/dL Red Cell Distribution Width 13.2 11.0-15.5 % Platelet Count 231 130-400 K/uL Mean Platelet Volume 9.4 7.5-10.5 fL Immature Granulocyte % (Auto) 0.3 0-1 % Neutrophils (%) (Auto) 56.7 40.0-77.0 % Lymphocytes (%) (Auto) 33.8 21.0-51.0 % Monocytes (%) (Auto) 6.2 3.0-13.0 % Eosinophils (%) (Auto) 2.7 0.0-8.0 % Basophils (%) (Auto) 0.3 0.0-5.0 % Neutrophils # (Auto) 3.4 1.8-7.7 K/uL Lymphocytes # (Auto) 2.0 1.0-4.8 K/uL Monocytes # (Auto) 0.4 0.1-1.0 K/uL Eosinophils # (Auto) 0.16 0.00-0.70 K/uL Basophils # (Auto) 0.02 0.00-0.20 K/uL Absolute Immature Granulocyte (auto 0.02 0-1 K/uL Nucleated Red Blood Cells 0.0 0.0-0.19 % Chemistry Labs: Test 09/30/24 08:05 Range/Units Sodium Level 143 136-145 mmol/L Potassium Level 4.0 3.5-5.1 mmol/L Chloride Level 106 101-111 mmol/L Carbon Dioxide Level 28 21-32 mmol/L Blood Urea Nitrogen 20 H 7-18 mg/dL Creatinine 0.9 0.5-1.0 mg/dL Glomerular Filtration Rate Calc 71 >90 mL/min Random Glucose 99 70-105 mg/dL Total Calcium 9.6 8.5-10.1 mg/dL Troponin I High Sensitivity 5 4-50 ng/L Thyroid Stimulating Hormone (TSH) 1.84 # 0.36-3.74 uIU/mL Coagulation Labs: Test 09/30/24 08:05 Range/Units Prothrombin Time 10.3 9.6-11.6 SEC Prothromb Time International Ratio <= 0.93 0.85-1.15 Activated Partial Thromboplast Time 24.3 L 26.3-35.5 SEC DIAGNOSTICS / RADIOLOGY RESULTS: [Exam Type: CHEST 1VW Clinical Information: Shortness of breath Comparison: None Findings: The lungs are clear of infiltrates. The heart is enlarged. Bony and soft tissue structures of the chest wall are unremarkable. IMPRESSION: Cardiomegaly. Clear lungs.] PLAN NEURO: Minimize central acting medications as possible. Maintain fall precautions, adequate lighting during the day PULMONARY: Supplemental 02 as needed. Maintain aspiration precautions at all times CARDIOVASCULAR: Follow hemodynamics. Vital signs per facility protocol GI & NUTRITION: Continue with nutritional support. Continue stool softeners and laxatives as needed. KIDNEYS & ELECTROLYTES: Strict monitoring of intake, output and overall fluid balance. Avoid nephrotoxic medications to the extent possible. Medications to be dosed according to renal function. Monitor electrolytes and replace as needed ENDOCRINE: Maintain blood glucose between 100-180 at all times. Hypoglycemia protocol in place INFECTIOUS DISEASE: Trend temperature, WBC and procalcitonin level Follow cultures, deescalate antibiotics as soon as possible. Panculture if new onset fever ONCOLOGY/HEMATOLOGY/COAGULATION: Monitor for s/s of bleeding Monitor hemoglobin, coagulation studies as needed SKIN: Pressure ulcer prevention per facility protocol Specialty mattress ORTHO/REHAB: Continue PT/OT Prophylaxis: Continue GI and DVT prophylaxis Code Status: Full Resuscitation Disposition: TBD Other: Total patient care time exceeds 35 minutes excluding all procedures. ANNIE CALIX Sep 30, 2024 11:32
[2024-09-30 14:42] VITALS: BP 125/73; PULSE 69; RESP 20; TEMP 98.7
[2024-09-30 16:08] VITALS: O2SAT 99
[2024-09-30 16:28] VITALS: BP 128/71; PULSE 72; RESP 20; TEMP 98.7
--- NOTE | 2024-09-30 18:00 | NUR ---
CARDIOLOGY CONSULT PAGED DR. RODRÍGUEZ FOR NEW CONSULTMD HAS NOT RETURNED CALL
[2024-09-30 19:50] VITALS: O2SAT 96
[2024-09-30 20:10] VITALS: BP 111/65; PULSE 71; RESP 18; TEMP 98.4
[2024-09-30] MEDS ORDERED: NON-FORMULARY MEDICATION 1 EACH (Sertraline HCl 1 TAB) PO SCH (21:00)
[2024-09-30] MEDS: TEMAZepam 15 MG CAPSULE PO SCH (21:28)
[2024-09-30] MEDS: APIXaban 5 MG TABLET PO SCH (21:29)
[2024-09-30] MEDS: SERTraline HCL 50 MG TABLET PO SCH (21:29)
[2024-09-30] MEDS: AMIOdarone 200 MG TABLET PO SCH (21:29)
[2024-09-30] MEDS: atorVAStatin 20 MG TABLET PO SCH (21:29)
[2024-10-01] VITALS (9 sets, daily range): BP systolic 103–153; BP diastolic 53–84; PULSE 61–72; RESP 16–20; TEMP 97.5–98.6; O2SAT 98–99
[2024-10-01] MEDS ORDERED: PHARMACY COMMUNICATION MISC SCH (00:30)
[2024-10-01] MEDS ORDERED: ARIPIPrazole 5 MG TABLET PO SCH (09:00)
[2024-10-01] MEDS: FERROUS FUMARATE 324 MG TABLET PO SCH (10:35)
--- NOTE | 2024-10-01 10:55 | CONS ---
[facility] CARDIOLOGY CONSULTATION REPORT Date Patient Seen: Oct 01, 2024 Time of Visit: 10:25 Requesting Physician: Norbert García MD Reason for Consultation: SVT History of Present Illness: This is a 63-year-old white female with a past medical history of hypertension, hyperlipidemia, depression, normal CT coronary angiogram 05/07/2024 and complex arrhythmias including paroxysmal atrial fibrillation, recurrent SVT with multiple right and left atrial tachycardias and a severely diseased right atrium has undergone prior EP evaluation and management with more recent EP study February 20, 2024 in which she underwent catheter ablation of the mid anterolateral right atrial focus with creation of a cavo tricuspid isthmus line and further ablation was not performed due to concern for sinus exit block. She has been managed by our EP consultants. She was hospitalized 09/14/2024 due to recurrence of a supraventricular tachycardia with heart rates into the 140 beat per minute range. She was treated with IV diltiazem and she converted with heart rates in the 60 beat per minute range but dropping into the 30-40 beat per minute range with the associated dizziness. During that admission, she was loaded with IV amiodarone and was discharged home with amiodarone 200 mg p.o. daily. She was readmitted on 09/19/2024 due to sustained tachycardia with heart rates into the 140 beat per minute range lasting up to 36 hours. She was again started on IV amiodarone and converted to a sinus rhythm. She again developed heart rate into the 30 beat per minute range while on verapamil ER 120 mg p.o. daily and subsequently her verapamil was discontinued. She is currently on amiodarone 200 mg p.o. b.i.d. at home. Patient presented to the hospital on 09/20/2024 with recurrent symptoms of both dizziness and dyspnea and subsequent palpitations. 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 on 09/30/2024, she was in her bed and she felt her heart flop, she felt dizzy and had associated dyspnea. She grabbed her pulse oximeter and her heart rates were recording 38, 39 and 40. After about 15 minutes, she then developed palpitations with heart rate into the 150 beat per minute range. She persisted with symptoms of lightheadedness and dyspnea. She had taken her amiodarone 200 mg around 5:00 a.m.. Within the hour, she presented to the ER for further assessment. In the emergency department, her EKG demonstrated a supraventricular tachycardia at a heart rate of 154 beats per minute (atrial tachycardia versus atrial flutter). She received IV diltiazem 17 mg IV x2 doses 30 minutes apart and her heart rate normalized to a normal sinus rhythm. She has been maintained on amiodarone 200 mg p.o. b.i.d. and Eliquis 5 mg p.o. b.i.d.. This morning, she offers no symptoms of dyspnea, chest pain or palpitations. Labs on admission were remarkable for sodium of 143, potassium 4.0, BUN 20 and creatinine of 0.9. WBC of 6.0, hemoglobin 13.4 and hematocrit of 39.9. Troponin was 5 and TSH was 1.84. Past Medical History: As outlined above and summarized below Multaq was not affordable and this was discontinued Initiated on propafenone 07/16/2024 but developed 2 near syncopal episodes and this was withdrawn Rate related left bundle branch block History of pericardial tamponade status post ablation procedure November 22, 2022 status post pericardiocentesis and subsequent pericardial window December 20, [address] coronary angiogram 05/07/2024 Normal Lexiscan Cardiolite stress test 04/23/2024 Past Surgical History: Pericardial window December 20, 2022 Tubal ligation Direct current cardioversion with anesthesia 02/24/2024 Atrial fibrillation/SVT ablation with anesthesia 02/28/2024 Family History: Mother with history of COPD Father with history of cardiac arrhythmia Sister with a history of atrial fibrillation Social History: Patient lives with her son. She has been independent. Habits: Non smoker. Denies alcohol consumption. Denies illicit drug use Home Meds: Amiodarone 200 mg p.o. b.i.d. Eliquis 5 mg p.o. b.i.d. Aripiprazole 2 mg p.o. daily Sertraline 50 mg p.o. b.i.d. Rosuvastatin 10 mg p.o. daily Review of Systems: CONST: No fever, fatigue, or weight changes. EYES: No recent vision problems. ENT: No congestion, ear pain, or sore throat. C/V: Positive for dizziness and associated dyspnea when heart rates in the 30 beat per minute range. Positive for palpitations with a heart rate in the 150s. No chest pain, no edema, no orthopnea or PND. RESP: No cough, congestion, wheezing or shortness of breath. GI: No abdominal pain, nausea, vomiting, constipation, or diarrhea. : No incontinence or dysuria. SKIN: No rash. NEURO: No headache, focal numbness or weakness, dizziness, or seizures. PSYCH: No depression or anxiety. HEME: No abnormal bruising or bleeding. LYMPH: No swollen glands. Physical Examination: GENERAL: No acute distress. HEAD: Normal with no signs of head trauma. EYES: PERRLA, EOMI, conjunctiva and sclera normal. ENT: Hearing grossly intact, normal oropharynx. NECK: Supple without JVD. There is no tenderness, lymphadenopathy, or masses. No thyromegaly. Normal carotid upstrokes without bruits. LUNGS: Clear breath sounds bilaterally. No wheezes, or rhonchi. HEART: Normal rate and rhythm. Normal S1 and S2 without murmurs, gallop or rub. VASC: Peripheral pulses +2 bilaterally. ABD: Bowel sounds normal, soft, nontender, no masses, no organomegaly. No audible bruits. : Not examined LYMPH: No lymphadenopathy noted. EXT: No clubbing, cyanosis or edema. SKIN: No rashes or lesions noted. NEURO: Awake, alert, and oriented x3. No focal sensory or strength deficits noted. Vital Signs (last 8hr) Date Time Temp Pulse Resp B/P (MAP) Pulse Ox O2 Delivery O2 Flow Rate FiO2 10/01/24 08:05 97.7 71 20 103/53 97 Room Air 10/01/24 05:10 97.5 72 18 136/74 97 Room Air Laboratory: Hematology Labs: Test 09/30/24 08:05 Range/Units White Blood Count 6.0 4.8-10.8 K/uL Red Blood Count 4.24 4.00-5.50 MIL/uL Hemoglobin 13.4 12.0-16.0 g/dL Hematocrit 39.9 36-48 % Mean Corpuscular Volume 94.1 79-99 fL Mean Corpuscular Hemoglobin 31.6 27.0-33.0 pg Mean Corpuscular Hemoglobin Concent 33.6 32.0-36.0 g/dL Red Cell Distribution Width 13.2 11.0-15.5 % Platelet Count 231 130-400 K/uL Mean Platelet Volume 9.4 7.5-10.5 fL Immature Granulocyte % (Auto) 0.3 0-1 % Neutrophils (%) (Auto) 56.7 40.0-77.0 % Lymphocytes (%) (Auto) 33.8 21.0-51.0 % Monocytes (%) (Auto) 6.2 3.0-13.0 % Eosinophils (%) (Auto) 2.7 0.0-8.0 % Basophils (%) (Auto) 0.3 0.0-5.0 % Neutrophils # (Auto) 3.4 1.8-7.7 K/uL Lymphocytes # (Auto) 2.0 1.0-4.8 K/uL Monocytes # (Auto) 0.4 0.1-1.0 K/uL Eosinophils # (Auto) 0.16 0.00-0.70 K/uL Basophils # (Auto) 0.02 0.00-0.20 K/uL Absolute Immature Granulocyte (auto 0.02 0-1 K/uL Nucleated Red Blood Cells 0.0 0.0-0.19 % Chemistry Labs: Test 10/01/24 05:58 09/30/24 08:05 Range/Units Whole Blood Glucose 96 70-110 MG/DL Sodium Level 143 136-145 mmol/L Potassium Level 4.0 3.5-5.1 mmol/L Chloride Level 106 101-111 mmol/L Carbon Dioxide Level 28 21-32 mmol/L Blood Urea Nitrogen 20 H 7-18 mg/dL Creatinine 0.9 0.5-1.0 mg/dL Glomerular Filtration Rate Calc 71 >90 mL/min Random Glucose 99 70-105 mg/dL Total Calcium 9.6 8.5-10.1 mg/dL Troponin I High Sensitivity 5 4-50 ng/L Thyroid Stimulating Hormone (TSH) 1.84 # 0.36-3.74 uIU/mL Coagulation Labs: Test 09/30/24 08:05 Range/Units Prothrombin Time 10.3 9.6-11.6 SEC Prothromb Time International Ratio <= 0.93 0.85-1.15 Activated Partial Thromboplast Time 24.3 L 26.3-35.5 SEC Diagnostics / Radiology: Chest x-ray 09/30/2024 demonstrated cardiomegaly, no pleural effusions and no CHF 2D echocardiogram 09/20/2024: Conclusion The left ventricle is normal size. LVEF is 55-60% with normal LV segmental wall motion. The left ventricular diastolic function is normal. The right ventricular systolic function is normal. The left atrium is severely dilated. No hemodynamically significant valvular abnormalities. There is no pericardial effusion. Impression and Plan: Recurrent symptomatic supraventricular tachycardia: Tachy-liliane syndrome: Paroxysmal atrial fibrillation and atrial tachycardia: -the patient has been followed regularly by our EP consultants. She is currently on amiodarone 200 mg p.o. b.i.d. and Eliquis 5 mg p.o. b.i.d. with last dose evening of 09/30/2024 -proceed with EP consultation -plans are to proceed with permanent pacemaker in October and I have discussed case with Dr. Guillermo Dooley who will arrange for permanent pacemaker placement later this week -hold Eliquis -continue amiodarone 200 mg p.o. b.i.d. Comorbidities: Hypertension Hyperlipidemia Normal LV systolic function with an LVEF of 55-60% by 2D echocardiogram 09/20/2024 Rate related left bundle branch block Normal CT coronary angiogram 05/07/2024 Normal Lexiscan Cardiolite stress test 04/23/2024 CHAUNCEY CASAREZ Oct 01, 2024 10:55
--- NOTE | 2024-10-01 15:29 | PN ---
[facility] PROGRESS NOTE Date Patient Seen: Oct 01, 2024 Time of Visit: 15:27 Supervising Physician: Dr. García Primary Care Physician: Dr. Castillo Outpatient Specialists: Dr. Dooley Inpatient Consults: Dr. Dooley, Dr. Vargas PROBLEM LIST: Atrial fibrillation with rapid ventricular response, resolved with diltiazem S/p cardiac ablation November 22, [address] Kenny S/p catheter ablation of the mid anterolateral right atrial focus with cr eation of cavotricuspid isthmus May 2024. Tachy-liliane syndrome Chronic diastolic heart failure- LVEF 55-60% in 09/20/2024 History of pericardial effusion with tamponade physiology S/p pericardial window Left bundle branch block INTERVAL HISTORY: 10/01 patient is awake alert and oriented, not in acute distress. Vital signs: blood pressure 131/62 heart rate is 72. T-max is 98.6 she remains on room air 98% saturation oxygen. No AFib overnight, patient has been converted to sinus rhythm. Patient is being seen by Cardiology and plan for pacemaker placement on by EP. In the meantime Eliquis has been on hold. Discussed with Cardiology okay to hold anticoagulation, we will start DVT prophylaxis at this time. Otherwise she is stable to be downgraded to medical-surgical with telemetry. Lab in the morning. REVIEW OF SYSTEMS: 12 point ROS reviewed with patient. Pertinent positives mentioned above. Otherwise negative. PHYSICAL EXAM: GENERAL: alert, weak, awake oriented x 3 HEENT: EOMI, Sclera non icteric, moist mucosa NECK: Supple, no JVD, trachea midline LUNGS: Clear breath sounds bilaterally. No wheezes HEART: Regular rate and rhythm. Normal S1 and S2, without murmurs ABD: Abdomen soft, nontender. Bowel sounds present EXT: No clubbing cyanosis or edema NEURO: Alert and oriented to person, follows commands Vital Signs (last 8hr) Date Time Temp Pulse Resp B/P (MAP) Pulse Ox O2 Delivery O2 Flow Rate FiO2 10/01/24 12:25 98.6 72 20 131/62 98 Room Air 10/01/24 08:05 97.7 71 20 103/53 97 Room Air 10/01/24 08:00 98 Room Air* 0 21 LABS: Hematology Labs: Test 09/30/24 08:05 Range/Units White Blood Count 6.0 4.8-10.8 K/uL Red Blood Count 4.24 4.00-5.50 MIL/uL Hemoglobin 13.4 12.0-16.0 g/dL Hematocrit 39.9 36-48 % Mean Corpuscular Volume 94.1 79-99 fL Mean Corpuscular Hemoglobin 31.6 27.0-33.0 pg Mean Corpuscular Hemoglobin Concent 33.6 32.0-36.0 g/dL Red Cell Distribution Width 13.2 11.0-15.5 % Platelet Count 231 130-400 K/uL Mean Platelet Volume 9.4 7.5-10.5 fL Immature Granulocyte % (Auto) 0.3 0-1 % Neutrophils (%) (Auto) 56.7 40.0-77.0 % Lymphocytes (%) (Auto) 33.8 21.0-51.0 % Monocytes (%) (Auto) 6.2 3.0-13.0 % Eosinophils (%) (Auto) 2.7 0.0-8.0 % Basophils (%) (Auto) 0.3 0.0-5.0 % Neutrophils # (Auto) 3.4 1.8-7.7 K/uL Lymphocytes # (Auto) 2.0 1.0-4.8 K/uL Monocytes # (Auto) 0.4 0.1-1.0 K/uL Eosinophils # (Auto) 0.16 0.00-0.70 K/uL Basophils # (Auto) 0.02 0.00-0.20 K/uL Absolute Immature Granulocyte (auto 0.02 0-1 K/uL Nucleated Red Blood Cells 0.0 0.0-0.19 % Chemistry Labs: Test 10/01/24 05:58 09/30/24 08:05 Range/Units Whole Blood Glucose 96 70-110 MG/DL Sodium Level 143 136-145 mmol/L Potassium Level 4.0 3.5-5.1 mmol/L Chloride Level 106 101-111 mmol/L Carbon Dioxide Level 28 21-32 mmol/L Blood Urea Nitrogen 20 H 7-18 mg/dL Creatinine 0.9 0.5-1.0 mg/dL Glomerular Filtration Rate Calc 71 >90 mL/min Random Glucose 99 70-105 mg/dL Total Calcium 9.6 8.5-10.1 mg/dL Troponin I High Sensitivity 5 4-50 ng/L Thyroid Stimulating Hormone (TSH) 1.84 # 0.36-3.74 uIU/mL Coagulation Labs: Test 09/30/24 08:05 Range/Units Prothrombin Time 10.3 9.6-11.6 SEC Prothromb Time International Ratio <= 0.93 0.85-1.15 Activated Partial Thromboplast Time 24.3 L 26.3-35.5 SEC DIAGNOSTICS / RADIOLOGY RESULTS: [ ] PLAN NEURO: Minimize central acting medications as possible. Maintain fall precautions, adequate lighting during the day PULMONARY: Supplemental 02 as needed. Maintain aspiration precautions at all times CARDIOVASCULAR: Follow hemodynamics. Vital signs per facility protocol GI & NUTRITION: Continue with nutritional support. Continue stool softeners and laxatives as needed. KIDNEYS & ELECTROLYTES: Strict monitoring of intake, output and overall fluid balance. Avoid nephrotoxic medications to the extent possible. Medications to be dosed according to renal function. Monitor electrolytes and replace as needed ENDOCRINE: Maintain blood glucose between 100-180 at all times. Hypoglycemia protocol in place INFECTIOUS DISEASE: Trend temperature, WBC and procalcitonin level Follow cultures, deescalate antibiotics as soon as possible. Panculture if new onset fever ONCOLOGY/HEMATOLOGY/COAGULATION: Monitor for s/s of bleeding Monitor hemoglobin, coagulation studies as needed SKIN: Pressure ulcer prevention per facility protocol Specialty mattress ORTHO/REHAB: Continue PT/OT Prophylaxis: Continue GI and DVT prophylaxis Code Status: Full Resuscitation Disposition: TBD Other: Total patient care time exceeds 35 minutes excluding all procedures. SHANNA PABLO LAWN SERVICE MANAGER Oct 01, 2024 15:29
--- NOTE | 2024-10-01 15:50 | NUR ---
DCP Pt awake, alert, oriented lives with son. PCP is Mark Castillo. Preferred pharmacy is [facility] in [place]. Pt states able to perform ADLs and stills drives. Anticipates discharge plan is for home. Addendum: 10/01/24 at 1604 by NELLY SLATER RN Amended: Links added.
[2024-10-01] MEDS: ENOXAPARIN SODIUM 40 MG/0.4 ML SYRINGE SQ SCH (18:27)
[2024-10-02] VITALS (7 sets, daily range): BP systolic 110–130; BP diastolic 55–83; PULSE 61–71; RESP 16–20; TEMP 97.5–98.8; O2SAT 99
[2024-10-02 04:01] LABS: BASOPHILS # (AUTO) 0.03 K/uL (0.00-0.20); BASOPHILS % (AUTO) 0.5 % (0.0-5.0); EOSINOPHILS # (AUTO) 0.21 K/uL (0.00-0.70); EOSINOPHILS % (AUTO) 3.3 % (0.0-8.0); HEMATOCRIT 35.2 % (36-48); IMMATURE GRANULOCYTE ABSOLUTE 0.01 K/uL (0-1); LYMPHOCYTES # (AUTO) 2.3 K/uL (1.0-4.8); LYMPHOCYTES % (AUTO) 35.6 % (21.0-51.0); MEAN CORPUSCULAR HEMOGLOBIN 31.3 pg (27.0-33.0); MEAN CORPUSCULAR HGB CONC 33.2 g/dL (32.0-36.0); MEAN CORPUSCULAR VOLUME 94.1 fL (79-99); MONOCYTES # (AUTO) 0.4 K/uL (0.1-1.0); MONOCYTES % (AUTO) 6.3 % (3.0-13.0); NEUTROPHILS # (AUTO) 3.4 K/uL (1.8-7.7); NEUTROPHILS % (AUTO) 54.1 % (40.0-77.0); PLATELET COUNT (AUTO) 214 K/uL (130-400); RED BLOOD CELL COUNT(AUTO) 3.74 MIL/uL (4.00-5.50); RED CELL DISTRIBUTION WIDTH 12.7 % (11.0-15.5); WHITE BLOOD COUNT (AUTO) 6.3 K/uL (4.8-10.8)
[2024-10-02 04:26] LABS: POTASSIUM 3.7 mmol/L (3.5-5.1)
--- NOTE | 2024-10-02 07:29 | PN ---
[facility] CARDIOLOGY PROGRESS NOTE Date Patient Seen: Oct 02, 2024 Time of Visit: 07:27 Interval History: [Tele shows sinus bradycardia with HR 58 bpm. ] Physical Examination: GENERAL: [No acute distress.] HEAD: [Normal with no signs of head trauma.] EYES: [PERRLA, EOMI, conjunctiva and sclera normal.] ENT: [Hearing grossly intact, normal oropharynx.] NECK: [Supple without JVD. There is no tenderness, lymphadenopathy, or masses. No thyromegaly. Normal carotid upstrokes without bruits.] LUNGS: [Clear breath sounds bilaterally. There are right basilar rales one third of the way up the chest. No wheezes, or rhonchi.] HEART: [Normal rate and rhythm. Normal S1 and S2 without mumurs, gallop or rub.] VASC: [Peripheral pulses +2 bilaterally.] ABD: [Bowel sounds normal, soft, nontender, no masses, no organomegaly. No audible bruits.] : [Not examined] LYMPH: [No lymphadenopathy noted.] EXT: [No clubbing, cyanosis or edema.] SKIN: [No rashes or lesions noted.] NEURO: [Awake, alert, and oriented x3. No focal sensory or strength deficits noted.] Laboratory: [ ] Hematology Labs: Test 10/02/24 03:40 Range/Units White Blood Count 6.3 4.8-10.8 K/uL Red Blood Count 3.74 L 4.00-5.50 MIL/uL Hemoglobin 11.7 L 12.0-16.0 g/dL Hematocrit 35.2 L 36-48 % Mean Corpuscular Volume 94.1 79-99 fL Mean Corpuscular Hemoglobin 31.3 27.0-33.0 pg Mean Corpuscular Hemoglobin Concent 33.2 32.0-36.0 g/dL Red Cell Distribution Width 12.7 11.0-15.5 % Platelet Count 214 130-400 K/uL Mean Platelet Volume 9.2 7.5-10.5 fL Immature Granulocyte % (Auto) 0.2 0-1 % Neutrophils (%) (Auto) 54.1 40.0-77.0 % Lymphocytes (%) (Auto) 35.6 21.0-51.0 % Monocytes (%) (Auto) 6.3 3.0-13.0 % Eosinophils (%) (Auto) 3.3 0.0-8.0 % Basophils (%) (Auto) 0.5 0.0-5.0 % Neutrophils # (Auto) 3.4 1.8-7.7 K/uL Lymphocytes # (Auto) 2.3 1.0-4.8 K/uL Monocytes # (Auto) 0.4 0.1-1.0 K/uL Eosinophils # (Auto) 0.21 0.00-0.70 K/uL Basophils # (Auto) 0.03 0.00-0.20 K/uL Absolute Immature Granulocyte (auto 0.01 0-1 K/uL Nucleated Red Blood Cells 0.0 0.0-0.19 % Chemistry Labs: Test 10/02/24 03:40 10/01/24 05:58 09/30/24 08:05 Range/Units Sodium Level 143 136-145 mmol/L Potassium Level 3.7 3.5-5.1 mmol/L Chloride Level 107 101-111 mmol/L Carbon Dioxide Level 25 21-32 mmol/L Blood Urea Nitrogen 20 H 7-18 mg/dL Creatinine 1.0 0.5-1.0 mg/dL Glomerular Filtration Rate Calc 63 >90 mL/min Random Glucose 100 70-105 mg/dL Total Calcium 9.4 8.5-10.1 mg/dL Magnesium Level 2.00 1.80-2.40 mg/dL Whole Blood Glucose 96 70-110 MG/DL Troponin I High Sensitivity 5 4-50 ng/L Thyroid Stimulating Hormone (TSH) 1.84 # 0.36-3.74 uIU/mL Coagulation Labs: Test 09/30/24 08:05 Range/Units Prothrombin Time 10.3 9.6-11.6 SEC Prothromb Time International Ratio <= 0.93 0.85-1.15 Activated Partial Thromboplast Time 24.3 L 26.3-35.5 SEC Diagnostics / Radiology: [Copy/Paste Echos/Imaging Report here] Impression and Plan: [ Recurrent symptomatic supraventricular tachycardia: Tachy-liliane syndrome: Paroxysmal atrial fibrillation and atrial tachycardia: -the patient has been followed regularly by our EP consultants. She is currently on amiodarone 200 mg p.o. b.i.d. and Eliquis 5 mg p.o. b.i.d. with last dose evening of 09/30/2024 -proceed with EP consultation -plans are to proceed with permanent pacemaker in October and case discussed case with Dr. Guillermo Dooley who will arrange for permanent pacemaker placement later this week -hold Eliquis -continue amiodarone 200 mg p.o. b.i.d. Comorbidities: Hypertension Hyperlipidemia Normal LV systolic function with an LVEF of 55-60% by 2D echocardiogram 09/20/2024 Rate related left bundle branch block Normal CT coronary angiogram 05/07/2024 Normal Lexiscan Cardiolite stress test 04/23/2024] SHERYL IVERSON MD Oct 02, 2024 07:29
--- NOTE | 2024-10-02 09:11 | CONS ---
HPI: This is a 63-year-old female with a history of persistent atrial fibrillation status post A-fib ablation in November [address] Kenny complicated by cardiac tamponade status post pericardiocentesis with redevelopment of tamponade status post pericardial window. She underwent redo catheter ablation of a mid anterolateral right atrial focus with creation of cavotricuspid isthmus line 02/08/2024. She was found to have a severely diseased right atrium with multiple right and left atrial tachycardias. The left atrium was mapped in the previous PVI was intact with the exception of an isolated signal in the right pulmonary vein anteriorly. The focus exhibited exit block and no ablation was performed in the left atrium. It was decided to not perform further ablation due to the multitude of potential micro and macro reentry circuit in the fact that ablation in the superior site with connection of the previous line could result in sinus exit block. She also has a history of rate related left bundle branch block, depression and hyperlipidemia. She was admitted 09/30/2024 secondary to symptomatic bradycardia. She reports heart rates in the upper 30s associated with dizziness and shortness of breath, followed by palpitations with heart rates in the 150s. Her EKG on admission 09/30/2024 shows supraventricular tachycardia with a left bundle-branch block pattern, heart rate 154 beats per minute. She received IV diltiazem x2 and converted to sinus rhythm. She is currently in sinus rhythm with heart rates in the 60s. Her most recent echocardiogram 09/20/2024 demonstrates an ejection fraction of 55-60% with a severely dilated left atrium and trace mitral valve regurgitation. Her most recent Lexiscan 04/23/2024 which was deemed high risk and then underwent coronary CTA which was negative for coronary artery disease. She is doing well this morning without new cardiac complaints. Patient History: PAST MEDICAL HISTORY: As noted above. SOCIAL HISTORY: She lives with her son. SURGICAL HISTORY: As noted above. Allergies: Coded Allergies: Sulfa (Sulfonamide Antibiotics) (Verified Allergy, Unknown, 10/03/19) codeine (Verified Allergy, Unknown, 10/03/19) Additional RoS: Negative with the exception of the HPI. Vital Signs Vital Signs 10/01/24 10/02/24 19:30 07:00 Temp 98.8 Pulse 61 Resp 20 B/P (MAP) 129/73 Pulse Ox 99 O2 Delivery Room Air O2 Flow Rate 0 FiO2 21 Appearance: Well dev, well nourished Eyes: Normal Conjuctivae/eyelid Ear/Nose/Mouth/Throat: Landmarks WNL Neck: Symmetric, trach midline Cardiovascular: Regular Rate, Regular Rhythm Respiratory: Lungs clear Musculoskeletal: Normal ROM Psychology: Insight WNL, Orientation WNL, Memory WNL Laboratory Tests Test 09/30/24 12:29 09/30/24 14:50 09/30/24 20:17 10/01/24 05:58 Range/Units Whole Blood Glucose 85 100 163 96 70-110 MG/DL Test 10/02/24 03:40 Range/Units White Blood Count 6.3 4.8-10.8 K/uL Red Blood Count 3.74 4.00-5.50 MIL/uL Hemoglobin 11.7 12.0-16.0 g/dL Hematocrit 35.2 36-48 % Mean Corpuscular Volume 94.1 79-99 fL Mean Corpuscular Hemoglobin 31.3 27.0-33.0 pg Mean Corpuscular Hemoglobin Concent 33.2 32.0-36.0 g/dL Red Cell Distribution Width 12.7 11.0-15.5 % Platelet Count 214 130-400 K/uL Mean Platelet Volume 9.2 7.5-10.5 fL Immature Granulocyte % (Auto) 0.2 0-1 % Neutrophils (%) (Auto) 54.1 40.0-77.0 % Lymphocytes (%) (Auto) 35.6 21.0-51.0 % Monocytes (%) (Auto) 6.3 3.0-13.0 % Eosinophils (%) (Auto) 3.3 0.0-8.0 % Basophils (%) (Auto) 0.5 0.0-5.0 % Neutrophils # (Auto) 3.4 1.8-7.7 K/uL Lymphocytes # (Auto) 2.3 1.0-4.8 K/uL Monocytes # (Auto) 0.4 0.1-1.0 K/uL Eosinophils # (Auto) 0.21 0.00-0.70 K/uL Basophils # (Auto) 0.03 0.00-0.20 K/uL Absolute Immature Granulocyte (auto 0.01 0-1 K/uL Nucleated Red Blood Cells 0.0 0.0-0.19 % Sodium Level 143 136-145 mmol/L Potassium Level 3.7 3.5-5.1 mmol/L Chloride Level 107 101-111 mmol/L Carbon Dioxide Level 25 21-32 mmol/L Blood Urea Nitrogen 20 7-18 mg/dL Creatinine 1.0 0.5-1.0 mg/dL Glomerular Filtration Rate Calc 63 >90 mL/min Random Glucose 100 70-105 mg/dL Total Calcium 9.4 8.5-10.1 mg/dL Magnesium Level 2.00 1.80-2.40 mg/dL ASSESSMENT: 1. Recurrent supraventricular tachycardia. 2. Tachy-liliane syndrome. 3. Persistent atrial fibrillation. 4. Rate-related left bundle-branch block. 5. Anxiety and depression. PLAN: 1. She clearly has tachy-liliane syndrome and was pending pacemaker insertion on 10/11/2024. Due to the recurrent episodes of SVT and bradycardia, she will undergo pacemaker insertion on 10/04/2024. The procedure had been discussed in detail during her previous admission on 09/19/2024. 2. After she undergoes pacemaker insertion, we will adjust her medical therapy in order to reduce her arrhythmia burden and improve rate control during episodes of SVT. 3. She is pending a cardiac MRI on 10/24/2024 in [place]. She was advised that we will defer the cardiac MRI for six weeks after she undergoes pacemaker insertion. She will call the cardiac MRI department at [facility] in [place] to reschedule. 4. She is currently on reduced dose Lovenox for DVT prophylaxis. As long as she maintain sinus rhythm, we will continue the reduced dose. However, if she develops recurrent atrial fibrillation or atrial flutter, he will transitioned to full-dose Lovenox 1 milligram/kilogram twice daily which would need to be held the evening prior to pacemaker insertion on 10/04/2024. LEOLA SIMON Oct 02, 2024 09:11
--- NOTE | 2024-10-02 11:20 | PN ---
[facility] PROGRESS NOTE Date Patient Seen: Oct 02, 2024 Time of Visit: 11:20 Supervising Physician: Norbert García MD Primary Care Physician: Dr. Castillo Outpatient Specialists: Dr. Dooley Inpatient Consults: Dr. Dooley, Dr. Vargas PROBLEM LIST: Atrial fibrillation with rapid ventricular response, resolved with diltiazem S/p cardiac ablation November 22, [address] Kenny S/p catheter ablation of the mid anterolateral right atrial focus with creation of cavotricuspid isthmus May 2024. Tachy-liliane syndrome Chronic diastolic heart failure- LVEF 55-60% in 09/20/2024 History of pericardial effusion with tamponade physiology S/p pericardial window Left bundle branch block INTERVAL HISTORY: 10/01 patient is awake alert and oriented, not in acute distress. Vital signs: blood pressure 131/62 heart rate is 72. T-max is 98.6 she remains on room air 98% saturation oxygen. No AFib overnight, patient has been converted to sinus rhythm. Patient is being seen by Cardiology and plan for pacemaker placement on by EP. In the meantime Eliquis has been on hold. Discussed with Cardiology okay to hold anticoagulation, we will start DVT prophylaxis at this time. Otherwise she is stable to be downgraded to medical-surgical with telemetry. Lab in the morning. 10/02-patient is awake alert oriented x3. No major overnight events. Patient is in no apparent distress and denies any chest pain palpitations or shortness of breath. She is hemodynamically stable with a blood pressure 124/71 heart rate 62 sinus rhythm on the tele monitor respiratory rate of 20 saturating 99% on room air and afebrile. on CBC H&H is 11.7/35.2 slightly decreased from yesterday. Chemistry unremarkable kidneys are doing good creatinine 1.0 GFR of 63. Patient is awaiting a pacemaker placement for 10/04/23. We will continue to follow cardiology recommendations. REVIEW OF SYSTEMS: 12 point ROS reviewed with patient. Pertinent positives mentioned above. Otherwise negative. PHYSICAL EXAM: GENERAL: alert, weak, awake oriented x 3 HEENT: EOMI, Sclera non icteric, moist mucosa NECK: Supple, no JVD, trachea midline LUNGS: Clear breath sounds bilaterally. No wheezes HEART: Regular rate and rhythm. Normal S1 and S2, without murmurs ABD: Abdomen soft, nontender. Bowel sounds present EXT: No clubbing cyanosis or edema NEURO: Alert and oriented to person, follows commands Vital Signs (last 8hr) Date Time Temp Pulse Resp B/P (MAP) Pulse Ox O2 Delivery O2 Flow Rate FiO2 10/02/24 07:30 99 Room Air* 0 21 10/02/24 07:00 98.8 61 20 129/73 99 Room Air 10/02/24 03:31 98.8 68 16 130/83 97 Room Air LABS: Hematology Labs: Test 10/02/24 03:40 Range/Units White Blood Count 6.3 4.8-10.8 K/uL Red Blood Count 3.74 L 4.00-5.50 MIL/uL Hemoglobin 11.7 L 12.0-16.0 g/dL Hematocrit 35.2 L 36-48 % Mean Corpuscular Volume 94.1 79-99 fL Mean Corpuscular Hemoglobin 31.3 27.0-33.0 pg Mean Corpuscular Hemoglobin Concent 33.2 32.0-36.0 g/dL Red Cell Distribution Width 12.7 11.0-15.5 % Platelet Count 214 130-400 K/uL Mean Platelet Volume 9.2 7.5-10.5 fL Immature Granulocyte % (Auto) 0.2 0-1 % Neutrophils (%) (Auto) 54.1 40.0-77.0 % Lymphocytes (%) (Auto) 35.6 21.0-51.0 % Monocytes (%) (Auto) 6.3 3.0-13.0 % Eosinophils (%) (Auto) 3.3 0.0-8.0 % Basophils (%) (Auto) 0.5 0.0-5.0 % Neutrophils # (Auto) 3.4 1.8-7.7 K/uL Lymphocytes # (Auto) 2.3 1.0-4.8 K/uL Monocytes # (Auto) 0.4 0.1-1.0 K/uL Eosinophils # (Auto) 0.21 0.00-0.70 K/uL Basophils # (Auto) 0.03 0.00-0.20 K/uL Absolute Immature Granulocyte (auto 0.01 0-1 K/uL Nucleated Red Blood Cells 0.0 0.0-0.19 % Chemistry Labs: Test 10/02/24 03:40 10/01/24 05:58 Range/Units Sodium Level 143 136-145 mmol/L Potassium Level 3.7 3.5-5.1 mmol/L Chloride Level 107 101-111 mmol/L Carbon Dioxide Level 25 21-32 mmol/L Blood Urea Nitrogen 20 H 7-18 mg/dL Creatinine 1.0 0.5-1.0 mg/dL Glomerular Filtration Rate Calc 63 >90 mL/min Random Glucose 100 70-105 mg/dL Total Calcium 9.4 8.5-10.1 mg/dL Magnesium Level 2.00 1.80-2.40 mg/dL Whole Blood Glucose 96 70-110 MG/DL DIAGNOSTICS / RADIOLOGY RESULTS: [ ] PLAN Patient is awaiting a permanent pacemaker placement for 10/04/24. We will continue to follow cardiology recommendations. Continuous telemetry monitoring NEURO: Minimize central acting medications as possible. Maintain fall precautions, adequate lighting during the day PULMONARY: Supplemental 02 as needed. Maintain aspiration precautions at all times CARDIOVASCULAR: Follow hemodynamics. Vital signs per facility protocol GI & NUTRITION: Continue with nutritional support. Continue stool softeners and laxatives as needed. KIDNEYS & ELECTROLYTES: Strict monitoring of intake, output and overall fluid balance. Avoid nephrotoxic medications to the extent possible. Medications to be dosed according to renal function. Monitor electrolytes and replace as needed ENDOCRINE: Maintain blood glucose between 100-180 at all times. Hypoglycemia protocol in place INFECTIOUS DISEASE: Trend temperature, WBC and procalcitonin level Follow cultures, deescalate antibiotics as soon as possible. Panculture if new onset fever ONCOLOGY/HEMATOLOGY/COAGULATION: Monitor for s/s of bleeding Monitor hemoglobin, coagulation studies as needed SKIN: Pressure ulcer prevention per facility protocol Specialty mattress ORTHO/REHAB: Continue PT/OT Prophylaxis: Continue GI and DVT prophylaxis Code Status: Full Resuscitation Disposition: TBD Other: Total patient care time exceeds 35 minutes excluding all procedures. KEMAR ROWE Oct 02, 2024 11:20
[2024-10-02] MEDS: ARIPIPrazole 5 MG TABLET PO SCH (20:48)
[2024-10-03] VITALS (9 sets, daily range): BP systolic 120–132; BP diastolic 70–83; PULSE 59–72; RESP 18–20; TEMP 97.4–98.5; O2SAT 99
--- NOTE | 2024-10-03 09:06 | PN ---
[facility] CARDIOLOGY PROGRESS NOTE Date Patient Seen: Oct 03, 2024 Time of Visit: 09:05 Interval History: Patient denies complaints Physical Examination: GENERAL: [No acute distress.] HEAD: [Normal with no signs of head trauma.] LUNGS: [Clear breath sounds bilaterally. On room air. No wheezes, or rhonchi.] HEART: [irregularly irregular rhythm. Normal S1 and S2 without murmurs, gallop or rub.] VASC: [Peripheral pulses +2 bilaterally.] ABD: [soft nontender.] EXT: [No clubbing, cyanosis or edema.] SKIN: [No rashes or lesions noted.] NEURO: [Awake, alert, and oriented x3. Nonfocal.] Laboratory: [ ] Hematology Labs: Test 10/02/24 03:40 Range/Units White Blood Count 6.3 4.8-10.8 K/uL Red Blood Count 3.74 L 4.00-5.50 MIL/uL Hemoglobin 11.7 L 12.0-16.0 g/dL Hematocrit 35.2 L 36-48 % Mean Corpuscular Volume 94.1 79-99 fL Mean Corpuscular Hemoglobin 31.3 27.0-33.0 pg Mean Corpuscular Hemoglobin Concent 33.2 32.0-36.0 g/dL Red Cell Distribution Width 12.7 11.0-15.5 % Platelet Count 214 130-400 K/uL Mean Platelet Volume 9.2 7.5-10.5 fL Immature Granulocyte % (Auto) 0.2 0-1 % Neutrophils (%) (Auto) 54.1 40.0-77.0 % Lymphocytes (%) (Auto) 35.6 21.0-51.0 % Monocytes (%) (Auto) 6.3 3.0-13.0 % Eosinophils (%) (Auto) 3.3 0.0-8.0 % Basophils (%) (Auto) 0.5 0.0-5.0 % Neutrophils # (Auto) 3.4 1.8-7.7 K/uL Lymphocytes # (Auto) 2.3 1.0-4.8 K/uL Monocytes # (Auto) 0.4 0.1-1.0 K/uL Eosinophils # (Auto) 0.21 0.00-0.70 K/uL Basophils # (Auto) 0.03 0.00-0.20 K/uL Absolute Immature Granulocyte (auto 0.01 0-1 K/uL Nucleated Red Blood Cells 0.0 0.0-0.19 % Chemistry Labs: Test 10/03/24 03:47 10/02/24 03:40 Range/Units Magnesium Level 2.00 1.80-2.40 mg/dL Sodium Level 143 136-145 mmol/L Potassium Level 3.7 3.5-5.1 mmol/L Chloride Level 107 101-111 mmol/L Carbon Dioxide Level 25 21-32 mmol/L Blood Urea Nitrogen 20 H 7-18 mg/dL Creatinine 1.0 0.5-1.0 mg/dL Glomerular Filtration Rate Calc 63 >90 mL/min Random Glucose 100 70-105 mg/dL Total Calcium 9.4 8.5-10.1 mg/dL Impression and Plan: Recurrent symptomatic supraventricular tachycardia: Tachy-liliane syndrome: Paroxysmal atrial fibrillation and atrial tachycardia: -the patient has been followed regularly by our EP consultants. She is currently on amiodarone 200 mg p.o. b.i.d. and Eliquis 5 mg p.o. b.i.d. with last dose evening of 09/30/2024. Continue to hold Eliquis. -Plans for permanent pacemaker tentatively 10/04/24. Keep NPO p midnight. All questions answered. Comorbidities: Hypertension Hyperlipidemia Normal LV systolic function with an LVEF of 55-60% by 2D echocardiogram 09/20/2024 Rate related left bundle branch block Normal CT coronary angiogram 05/07/2024 Normal Lexiscan Cardiolite stress test 04/23/2024] ANAYELI ECHOLS DO Oct 03, 2024 09:06
--- NOTE | 2024-10-03 21:32 | PN ---
[facility] PROGRESS NOTE Date Patient Seen: Oct 03, 2024 Time of Visit: 13:30 Supervising Physician:Evan Cordova MD Primary Care Physician: Dr. Castillo Outpatient Specialists: Dr. Dooley Inpatient Consults: Dr. Dooley, Dr. Vargas PROBLEM LIST: Atrial fibrillation with rapid ventricular response, resolved with diltiazem S/p cardiac ablation November 22, [address] Kenny S/p catheter ablation of the mid anterolateral right atrial focus with cre ation of cavotricuspid isthmus May 2024. Tachy-liliane syndrome Chronic diastolic heart failure- LVEF 55-60% in 09/20/2024 History of pericardial effusion with tamponade physiology S/p pericardial window Left bundle branch block INTERVAL HISTORY: 10/01 patient is awake alert and oriented, not in acute distress. Vital signs: blood pressure 131/62 heart rate is 72. T-max is 98.6 she remains on room air 98% saturation oxygen. No AFib overnight, patient has been converted to sinus rhythm. Patient is being seen by Cardiology and plan for pacemaker placement on by EP. In the meantime Eliquis has been on hold. Discussed with Cardiology okay to hold anticoagulation, we will start DVT prophylaxis at this time. Otherwise she is stable to be downgraded to medical-surgical with telemetry. Lab in the morning. 10/02-patient is awake alert oriented x3. No major overnight events. Patient is in no apparent distress and denies any chest pain palpitations or shortness of breath. She is hemodynamically stable with a blood pressure 124/71 heart rate 62 sinus rhythm on the tele monitor respiratory rate of 20 saturating 99% on room air and afebrile. on CBC H&H is 11.7/35.2 slightly decreased from yesterday. Chemistry unremarkable kidneys are doing good creatinine 1.0 GFR of 63. Patient is awaiting a pacemaker placement for 10/04/23. We will continue to follow cardiology recommendations. 10/03/23-per telemetry monitoring patient has been sinus rhythm in the 60s. She has been hemodynamically stable and afebrile. Lab work has been unremarkable. No major overnight events per RN. Patient has no complaints reports she is feeling completely fine. We will follow cardiology recommendations which is four pacemaker placement for tomorrow per Dr. Dooley. REVIEW OF SYSTEMS: 12 point ROS reviewed with patient. Pertinent positives mentioned above. Otherwise negative. PHYSICAL EXAM: GENERAL: alert, weak, awake oriented x 3 HEENT: EOMI, Sclera non icteric, moist mucosa NECK: Supple, no JVD, trachea midline LUNGS: Clear breath sounds bilaterally. No wheezes HEART: Regular rate and rhythm. Normal S1 and S2, without murmurs ABD: Abdomen soft, nontender. Bowel sounds present EXT: No clubbing cyanosis or edema NEURO: Alert and oriented to person, follows commands Vital Signs (last 8hr) Date Time Temp Pulse Resp B/P (MAP) Pulse Ox O2 Delivery O2 Flow Rate FiO2 10/03/24 19:34 98.4 61 18 121/73 97 Room Air 10/03/24 16:00 98.4 60 20 123/76 96 Room Air 10/03/24 15:30 98.4 60 20 123/76 96 Room Air LABS: Hematology Labs: Test 10/02/24 03:40 Range/Units White Blood Count 6.3 4.8-10.8 K/uL Red Blood Count 3.74 L 4.00-5.50 MIL/uL Hemoglobin 11.7 L 12.0-16.0 g/dL Hematocrit 35.2 L 36-48 % Mean Corpuscular Volume 94.1 79-99 fL Mean Corpuscular Hemoglobin 31.3 27.0-33.0 pg Mean Corpuscular Hemoglobin Concent 33.2 32.0-36.0 g/dL Red Cell Distribution Width 12.7 11.0-15.5 % Platelet Count 214 130-400 K/uL Mean Platelet Volume 9.2 7.5-10.5 fL Immature Granulocyte % (Auto) 0.2 0-1 % Neutrophils (%) (Auto) 54.1 40.0-77.0 % Lymphocytes (%) (Auto) 35.6 21.0-51.0 % Monocytes (%) (Auto) 6.3 3.0-13.0 % Eosinophils (%) (Auto) 3.3 0.0-8.0 % Basophils (%) (Auto) 0.5 0.0-5.0 % Neutrophils # (Auto) 3.4 1.8-7.7 K/uL Lymphocytes # (Auto) 2.3 1.0-4.8 K/uL Monocytes # (Auto) 0.4 0.1-1.0 K/uL Eosinophils # (Auto) 0.21 0.00-0.70 K/uL Basophils # (Auto) 0.03 0.00-0.20 K/uL Absolute Immature Granulocyte (auto 0.01 0-1 K/uL Nucleated Red Blood Cells 0.0 0.0-0.19 % Chemistry Labs: Test 10/03/24 03:47 10/02/24 03:40 Range/Units Magnesium Level 2.00 1.80-2.40 mg/dL Sodium Level 143 136-145 mmol/L Potassium Level 3.7 3.5-5.1 mmol/L Chloride Level 107 101-111 mmol/L Carbon Dioxide Level 25 21-32 mmol/L Blood Urea Nitrogen 20 H 7-18 mg/dL Creatinine 1.0 0.5-1.0 mg/dL Glomerular Filtration Rate Calc 63 >90 mL/min Random Glucose 100 70-105 mg/dL Total Calcium 9.4 8.5-10.1 mg/dL DIAGNOSTICS / RADIOLOGY RESULTS: [ ] PLAN Patient is awaiting a permanent pacemaker placement for 10/04/24. We will continue to follow cardiology recommendations. Continuous telemetry monitoring NEURO: Minimize central acting medications as possible. Maintain fall precautions, adequate lighting during the day PULMONARY: Supplemental 02 as needed. Maintain aspiration precautions at all times CARDIOVASCULAR: Follow hemodynamics. Vital signs per facility protocol GI & NUTRITION: Continue with nutritional support. Continue stool softeners and laxatives as needed. KIDNEYS & ELECTROLYTES: Strict monitoring of intake, output and overall fluid balance. Avoid nephrotoxic medications to the extent possible. Medications to be dosed according to renal function. Monitor electrolytes and replace as needed ENDOCRINE: Maintain blood glucose between 100-180 at all times. Hypoglycemia protocol in place INFECTIOUS DISEASE: Trend temperature, WBC and procalcitonin level Follow cultures, deescalate antibiotics as soon as possible. Panculture if new onset fever ONCOLOGY/HEMATOLOGY/COAGULATION: Monitor for s/s of bleeding Monitor hemoglobin, coagulation studies as needed SKIN: Pressure ulcer prevention per facility protocol Specialty mattress ORTHO/REHAB: Continue PT/OT Prophylaxis: Continue GI and DVT prophylaxis Code Status: Full Resuscitation Disposition: TBD Other: Total patient care time exceeds 35 minutes excluding all procedures. KEMAR ROWE Oct 03, 2024 21:32
[2024-10-04] VITALS (12 sets, daily range): BP systolic 95–141; BP diastolic 51–78; PULSE 55–67; RESP 16–20; TEMP 97.7–98.8; O2SAT 94–100
[2024-10-04 04:16] LABS: HEMATOCRIT 31.6 % (36-48); MEAN CORPUSCULAR HEMOGLOBIN 31.4 pg (27.0-33.0); MEAN CORPUSCULAR HGB CONC 33.2 g/dL (32.0-36.0); MEAN CORPUSCULAR VOLUME 94.6 fL (79-99); RED BLOOD CELL COUNT(AUTO) 3.34 MIL/uL (4.00-5.50); RED CELL DISTRIBUTION WIDTH 12.9 % (11.0-15.5); WHITE BLOOD COUNT (AUTO) 5.6 K/uL (4.8-10.8)
[2024-10-04 04:29] LABS: INR 0.94 (0.85-1.15); PROTHROMBIN TIME 10.6 SEC (9.6-11.6)
[2024-10-04 04:30] LABS: MAGNESIUM 2.1 mg/dL (1.80-2.40); PARTIAL THROMBOPLASTIN TIME 23.9 SEC (26.3-35.5); POTASSIUM 3.6 mmol/L (3.5-5.1)
--- NOTE | 2024-10-04 07:34 | PN ---
[facility] CARDIOLOGY PROGRESS NOTE Date Patient Seen: Oct 04, 2024 Time of Visit: 07:34 Interval History: Patient denies complaints Pending pacemaker placement today Physical Examination: GENERAL: [No acute distress.] HEAD: [Normal with no signs of head trauma.] LUNGS: [Clear breath sounds bilaterally. On room air. No wheezes, or rhonchi.] HEART: [irregularly irregular rhythm. Normal S1 and S2 without murmurs, gallop or rub.] VASC: [Peripheral pulses +2 bilaterally.] ABD: [soft nontender.] EXT: [No clubbing, cyanosis or edema.] SKIN: [No rashes or lesions noted.] NEURO: [Awake, alert, and oriented x3. Nonfocal.] Laboratory: [ ] Hematology Labs: Test 10/04/24 03:47 Range/Units White Blood Count 5.6 4.8-10.8 K/uL Red Blood Count 3.34 L 4.00-5.50 MIL/uL Hemoglobin 10.5 L 12.0-16.0 g/dL Hematocrit 31.6 L 36-48 % Mean Corpuscular Volume 94.6 79-99 fL Mean Corpuscular Hemoglobin 31.4 27.0-33.0 pg Mean Corpuscular Hemoglobin Concent 33.2 32.0-36.0 g/dL Red Cell Distribution Width 12.9 11.0-15.5 % Platelet Count 198 130-400 K/uL Mean Platelet Volume 9.3 7.5-10.5 fL Nucleated Red Blood Cells 0.0 0.0-0.19 % Chemistry Labs: Test 10/04/24 03:47 Range/Units Sodium Level 145 136-145 mmol/L Potassium Level 3.6 3.5-5.1 mmol/L Chloride Level 108 101-111 mmol/L Carbon Dioxide Level 26 21-32 mmol/L Blood Urea Nitrogen 23 H 7-18 mg/dL Creatinine 1.0 0.5-1.0 mg/dL Glomerular Filtration Rate Calc 63 >90 mL/min Random Glucose 96 70-105 mg/dL Total Calcium 8.9 8.5-10.1 mg/dL Magnesium Level 2.10 1.80-2.40 mg/dL Coagulation Labs: Test 10/04/24 03:47 Range/Units Prothrombin Time 10.6 9.6-11.6 SEC Prothromb Time International Ratio 0.94 0.85-1.15 Activated Partial Thromboplast Time 23.9 L 26.3-35.5 SEC Diagnostics / Radiology: [Copy/Paste Echos/Imaging Report here] Impression and Plan: Recurrent symptomatic supraventricular tachycardia: Tachy-liliane syndrome: Paroxysmal atrial fibrillation and atrial tachycardia: -the patient has been followed regularly by our EP consultants. She is currently on amiodarone 200 mg p.o. b.i.d. and Eliquis 5 mg p.o. b.i.d. with last dose evening of 09/30/2024. Continue to hold Eliquis. -Plans for permanent pacemaker tentatively 10/04/24. Keep NPO p midnight. Comorbidities: Hypertension Hyperlipidemia Normal LV systolic function with an LVEF of 55-60% by 2D echocardiogram 09/20/2024 Rate related left bundle branch block Normal CT coronary angiogram 05/07/2024 Normal Lexiscan Cardiolite stress test 04/23/2024] SHERYL IVERSON MD Oct 04, 2024 07:34
--- NOTE | 2024-10-04 12:38 | PN ---
[facility] PROGRESS NOTE Date Patient Seen: Oct 04, 2024 Time of Visit: 12:38 Supervising Physician: Evan Cordova MD Primary Care Physician: Dr. Castillo Outpatient Specialists: Dr. Dooley Inpatient Consults: Dr. Dooley, Dr. Vargas PROBLEM LIST: Atrial fibrillation with rapid ventricular response, resolved with diltiazem S/p cardiac ablation November 22, [address] Kenny S/p catheter ablation of the mid anterolateral right atrial focus with cr eation of cavotricuspid isthmus May 2024. Tachy-liliane syndrome Chronic diastolic heart failure- LVEF 55-60% in 09/20/2024 History of pericardial effusion with tamponade physiology S/p pericardial window Left bundle branch block INTERVAL HISTORY: 10/01 patient is awake alert and oriented, not in acute distress. Vital signs: blood pressure 131/62 heart rate is 72. T-max is 98.6 she remains on room air 98% saturation oxygen. No AFib overnight, patient has been converted to sinus rhythm. Patient is being seen by Cardiology and plan for pacemaker placement on by EP. In the meantime Eliquis has been on hold. Discussed with Cardiology okay to hold anticoagulation, we will start DVT prophylaxis at this time. Otherwise she is stable to be downgraded to medical-surgical with telemetry. Lab in the morning. 10/02-patient is awake alert oriented x3. No major overnight events. Patient is in no apparent distress and denies any chest pain palpitations or shortness of breath. She is hemodynamically stable with a blood pressure 124/71 heart rate 62 sinus rhythm on the tele monitor respiratory rate of 20 saturating 99% on room air and afebrile. on CBC H&H is 11.7/35.2 slightly decreased from yesterday. Chemistry unremarkable kidneys are doing good creatinine 1.0 GFR of 63. Patient is awaiting a pacemaker placement for 10/04/23. We will continue to follow cardiology recommendations. 10/03/23-per telemetry monitoring patient has been sinus rhythm in the 60s. She has been hemodynamically stable and afebrile. Lab work has been unremarkable. No major overnight events per RN. Patient has no complaints reports she is feeling completely fine. We will follow cardiology recommendations which is four pacemaker placement for tomorrow per Dr. Dooley. 10/04/23- no major overnight events. Pt hemodynamically stable currently sinus Liliane in the 50s. P is scheduled for permanent pacemaker placement for today. Laboratory unremarkable. We will follow cardiology recommendations. REVIEW OF SYSTEMS: 12 point ROS reviewed with patient. Pertinent positives mentioned above. Otherwise negative. PHYSICAL EXAM: GENERAL: alert, weak, awake oriented x 3 HEENT: EOMI, Sclera non icteric, moist mucosa NECK: Supple, no JVD, trachea midline LUNGS: Clear breath sounds bilaterally. No wheezes HEART: Regular rate and rhythm. Normal S1 and S2, without murmurs ABD: Abdomen soft, nontender. Bowel sounds present EXT: No clubbing cyanosis or edema NEURO: Alert and oriented to person, follows commands Vital Signs (last 8hr) Date Time Temp Pulse Resp B/P (MAP) Pulse Ox O2 Delivery O2 Flow Rate FiO2 10/04/24 12:18 97.7 66 20 112/70 98 Room Air 10/04/24 08:40 100 Room Air* 0 21 10/04/24 08:11 98.8 62 20 125/69 99 Room Air LABS: Hematology Labs: Test 10/04/24 03:47 Range/Units White Blood Count 5.6 4.8-10.8 K/uL Red Blood Count 3.34 L 4.00-5.50 MIL/uL Hemoglobin 10.5 L 12.0-16.0 g/dL Hematocrit 31.6 L 36-48 % Mean Corpuscular Volume 94.6 79-99 fL Mean Corpuscular Hemoglobin 31.4 27.0-33.0 pg Mean Corpuscular Hemoglobin Concent 33.2 32.0-36.0 g/dL Red Cell Distribution Width 12.9 11.0-15.5 % Platelet Count 198 130-400 K/uL Mean Platelet Volume 9.3 7.5-10.5 fL Nucleated Red Blood Cells 0.0 0.0-0.19 % Chemistry Labs: Test 10/04/24 03:47 Range/Units Sodium Level 145 136-145 mmol/L Potassium Level 3.6 3.5-5.1 mmol/L Chloride Level 108 101-111 mmol/L Carbon Dioxide Level 26 21-32 mmol/L Blood Urea Nitrogen 23 H 7-18 mg/dL Creatinine 1.0 0.5-1.0 mg/dL Glomerular Filtration Rate Calc 63 >90 mL/min Random Glucose 96 70-105 mg/dL Total Calcium 8.9 8.5-10.1 mg/dL Magnesium Level 2.10 1.80-2.40 mg/dL Coagulation Labs: Test 10/04/24 03:47 Range/Units Prothrombin Time 10.6 9.6-11.6 SEC Prothromb Time International Ratio 0.94 0.85-1.15 Activated Partial Thromboplast Time 23.9 L 26.3-35.5 SEC DIAGNOSTICS / RADIOLOGY RESULTS: [ ] PLAN scheduled PPM for today, We will continue to follow cardiology recommendations. Continuous telemetry monitoring chest xr in am NEURO: Minimize central acting medications as possible. Maintain fall precautions, adequate lighting during the day PULMONARY: Supplemental 02 as needed. Maintain aspiration precautions at all times CARDIOVASCULAR: Follow hemodynamics. Vital signs per facility protocol GI & NUTRITION: Continue with nutritional support. Continue stool softeners and laxatives as needed. KIDNEYS & ELECTROLYTES: Strict monitoring of intake, output and overall fluid balance. Avoid nephrotoxic medications to the extent possible. Medications to be dosed according to renal function. Monitor electrolytes and replace as needed ENDOCRINE: Maintain blood glucose between 100-180 at all times. Hypoglycemia protocol in place INFECTIOUS DISEASE: Trend temperature, WBC and procalcitonin level Follow cultures, deescalate antibiotics as soon as possible. Panculture if new onset fever ONCOLOGY/HEMATOLOGY/COAGULATION: Monitor for s/s of bleeding Monitor hemoglobin, coagulation studies as needed SKIN: Pressure ulcer prevention per facility protocol Specialty mattress ORTHO/REHAB: Continue PT/OT Prophylaxis: Continue GI and DVT prophylaxis Code Status: Full Resuscitation Disposition: TBD Other: Total patient care time exceeds 35 minutes excluding all procedures. KEMAR ROWE MOHS SURGEON Oct 04, 2024 12:38
[2024-10-04] MEDS ORDERED: VANCOMYCIN 1G/250ML KIT 500 ML IV ONE (13:54)
[2024-10-04] MEDS ORDERED: LIDOCAINE HCL 1% MDV 50ML VIAL ONE (13:54)
[2024-10-04] MEDS ORDERED: MIDAZOLAM HCL 1 MG/ML 2ML VIAL ONE ×3 (13:55→14:37)
[2024-10-04] MEDS ORDERED: MEPERIDINE-PF 25 MG/ML SYG ONE ×3 (13:55→14:36)
[2024-10-04] MEDS ORDERED: BUPIvacaine/PF 0.25% 30ML VIAL IJ ONE (13:55)
[2024-10-04] MEDS ORDERED: IOHEXOL-350 50ML VIAL IV ONE (13:55)
[2024-10-04] MEDS: VANCOMYCIN KIT 1 GM/250 ML IV.KIT IV ONE (16:45)
[2024-10-04] MEDS: acetaMINOPHEN 325 MG TAB PO PRN (18:06)
[2024-10-05 03:11] VITALS: BP 126/71; PULSE 63; RESP 16; TEMP 97.8
[2024-10-05 04:06] LABS: BASOPHILS # (AUTO) 0.03 K/uL (0.00-0.20); BASOPHILS % (AUTO) 0.3 % (0.0-5.0); EOSINOPHILS # (AUTO) 0.13 K/uL (0.00-0.70); EOSINOPHILS % (AUTO) 1.4 % (0.0-8.0); HEMATOCRIT 31.6 % (36-48); IMMATURE GRANULOCYTE ABSOLUTE 0.03 K/uL (0-1); LYMPHOCYTES # (AUTO) 1.7 K/uL (1.0-4.8); LYMPHOCYTES % (AUTO) 19.4 % (21.0-51.0); MEAN CORPUSCULAR HEMOGLOBIN 31.3 pg (27.0-33.0); MEAN CORPUSCULAR HGB CONC 33.5 g/dL (32.0-36.0); MEAN CORPUSCULAR VOLUME 93.2 fL (79-99); MONOCYTES # (AUTO) 0.6 K/uL (0.1-1.0); MONOCYTES % (AUTO) 6.9 % (3.0-13.0); NEUTROPHILS # (AUTO) 6.4 K/uL (1.8-7.7); NEUTROPHILS % (AUTO) 71.7 % (40.0-77.0); PLATELET COUNT (AUTO) 200 K/uL (130-400); RED BLOOD CELL COUNT(AUTO) 3.39 MIL/uL (4.00-5.50); RED CELL DISTRIBUTION WIDTH 12.8 % (11.0-15.5)
[2024-10-05 04:12] LABS: CREATININE 0.9 mg/dL (0.5-1.0); MAGNESIUM 1.8 mg/dL (1.80-2.40); POTASSIUM 3.6 mmol/L (3.5-5.1)
[2024-10-05 07:00] VITALS: BP 141/76; PULSE 62; RESP 20; TEMP 97.7
--- NOTE | 2024-10-05 07:24 | PN ---
[facility] CARDIOLOGY PROGRESS NOTE Date Patient Seen: Oct 05, 2024 Time of Visit: 07:22 Interval History: Patient denies complaints s/p pacemaker placement Physical Examination: GENERAL: [No acute distress.] HEAD: [Normal with no signs of head trauma.] LUNGS: [Clear breath sounds bilaterally. On room air. No wheezes, or rhonchi.] HEART: [irregularly irregular rhythm. Normal S1 and S2 without murmurs, gallop or rub.] VASC: [Peripheral pulses +2 bilaterally.] ABD: [soft nontender.] EXT: [No clubbing, cyanosis or edema.] SKIN: [No rashes or lesions noted.] NEURO: [Awake, alert, and oriented x3. Nonfocal.] Laboratory: [ ] Hematology Labs: Test 10/05/24 03:36 Range/Units White Blood Count 9.0 # 4.8-10.8 K/uL Red Blood Count 3.39 L 4.00-5.50 MIL/uL Hemoglobin 10.6 L 12.0-16.0 g/dL Hematocrit 31.6 L 36-48 % Mean Corpuscular Volume 93.2 79-99 fL Mean Corpuscular Hemoglobin 31.3 27.0-33.0 pg Mean Corpuscular Hemoglobin Concent 33.5 32.0-36.0 g/dL Red Cell Distribution Width 12.8 11.0-15.5 % Platelet Count 200 130-400 K/uL Mean Platelet Volume 9.2 7.5-10.5 fL Immature Granulocyte % (Auto) 0.3 0-1 % Neutrophils (%) (Auto) 71.7 40.0-77.0 % Lymphocytes (%) (Auto) 19.4 L 21.0-51.0 % Monocytes (%) (Auto) 6.9 3.0-13.0 % Eosinophils (%) (Auto) 1.4 0.0-8.0 % Basophils (%) (Auto) 0.3 0.0-5.0 % Neutrophils # (Auto) 6.4 1.8-7.7 K/uL Lymphocytes # (Auto) 1.7 1.0-4.8 K/uL Monocytes # (Auto) 0.6 0.1-1.0 K/uL Eosinophils # (Auto) 0.13 0.00-0.70 K/uL Basophils # (Auto) 0.03 0.00-0.20 K/uL Absolute Immature Granulocyte (auto 0.03 0-1 K/uL Nucleated Red Blood Cells 0.0 0.0-0.19 % Chemistry Labs: Test 10/05/24 03:36 Range/Units Sodium Level 142 136-145 mmol/L Potassium Level 3.6 3.5-5.1 mmol/L Chloride Level 106 101-111 mmol/L Carbon Dioxide Level 28 21-32 mmol/L Blood Urea Nitrogen 24 H 7-18 mg/dL Creatinine 0.9 0.5-1.0 mg/dL Glomerular Filtration Rate Calc 71 >90 mL/min Random Glucose 99 70-105 mg/dL Total Calcium 8.8 8.5-10.1 mg/dL Magnesium Level 1.80 1.80-2.40 mg/dL Coagulation Labs: Test 10/04/24 03:47 Range/Units Prothrombin Time 10.6 9.6-11.6 SEC Prothromb Time International Ratio 0.94 0.85-1.15 Activated Partial Thromboplast Time 23.9 L 26.3-35.5 SEC Diagnostics / Radiology: [Copy/Paste Echos/Imaging Report here] Impression and Plan: Recurrent symptomatic supraventricular tachycardia: Tachy-liliane syndrome: Paroxysmal atrial fibrillation and atrial tachycardia: - She is currently on amiodarone 200 mg p.o. b.i.d. and Eliquis 5 mg p.o. b.i.d. with last dose evening of 09/30/2024. Will defer initiation of eliquis and discharge planning to EP team. -s/p pacemaker 1/2 Comorbidities: Hypertension Hyperlipidemia Normal LV systolic function with an LVEF of 55-60% by 2D echocardiogram 09/20/2024 Rate related left bundle branch block Normal CT coronary angiogram 05/07/2024 Normal Lexiscan Cardiolite stress test 04/23/2024 Thank you for the consult. She may follow up with Dr Dooley as instructed by him. She may see me within two weeks. Maria A Pascal MD] MARIA A PASCAL MD Oct 05, 2024 07:24
[2024-10-05] MEDS ORDERED: PoTASSium chl 10% ELIXIR 20MEQ 20 MEQ/15 ML UDCUP PO PRN (08:00)
[2024-10-05 09:00] VITALS: O2SAT 97
[2024-10-05] MEDS: PoTASSium chloRIDE 20MEQ ER 20 MEQ ERTAB PO PRN (09:08)
[2024-10-05 11:00] VITALS: BP 156/74; PULSE 59; RESP 20; TEMP 97.6
--- NOTE | 2024-10-05 11:06 | PN ---
The patient is doing well today. She is status post pacemaker implantation yesterday. She has a conduction system RV lead located in the left bundle branch area. Her atrial lead is in a somewhat unusual position which was necessary due to extremely poor signals throughout the right atrium. These abnormalities are likely related to some of her atrial tachycardias. Chest x- ray and pacing parameters are all acceptable. There was some far field sensing of the ventricular signal in the atrial lead however this was rectified by reprogramming the blanking period. The wound is healing nicely and there is no hematoma. She has had no significant atrial arrhythmias during this admission. Plan: 1. Patient can be discharged home today 2. Continue amiodarone 200 mg b.i.d. with decrease to 200 mg daily as an outpatient 3. Some of the atrial therapies were turned on under device. Some of them were deferred to the outpatient setting once the implant is stable in order to avoid inappropriate ventricular pacing in the event of lead dislodgement. 4. Resume Eliquis on Tuesday evening 5. Follow up with me and in our device clinic in 7-10 days 6. Follow up with Dr. Maria A Pascal in 2-3 weeks. 7. Antiarrhythmic therapy will be deferred until we see her in the office and as has her atrial arrhythmias via the diagnostics of her device. Vitals/Labs Vital Signs Date Time Temp Pulse Resp B/P (MAP) Pulse Ox O2 Delivery O2 Flow Rate FiO2 10/05/24 09:00 97 Room Air* 0 21 10/05/24 07:00 97.7 62 20 141/76 Laboratory Tests 10/05/24 03:36 Medications Current Medications Diltiazem HCl 17 mg ONCE ONCE IV; Start 09/30/24 at 08:00; Stop 09/30/24 at 08:00; Status DC Sodium Chloride 1,000 ml @ 0 mls/hr ONCE ONCE IV Last administered on 09/30/24at 08:06; Start 09/30/24 at 08:00; Stop 09/30/24 at 08:01; Status DC Diltiazem HCl 17 mg ONCE ONCE IVP Last administered on 09/30/24at 08:06; Start 09/30/24 at 08:30; Stop 09/30/24 at 08:31; Status DC Famotidine 20 mg BID PO Last administered on 10/05/24at 09:07; Start 09/30/24 at 09:00; Stop 10/30/24 at 08:59 Diphenhydramine HCl 25 mg Q4H PRN PO; Start 09/30/24 at 08:30; Stop 10/30/24 at 08:29 Diphenhydramine HCl 25 mg Q6H PRN IV; Start 09/30/24 at 08:30; Stop 10/30/24 at 08:29 Acetaminophen 650 mg Q6H PRN PO; Start 09/30/24 at 08:30; Stop 10/30/24 at 08:29 Acetaminophen 650 mg Q4H PRN PO Last administered on 10/05/24at 09:19; Start 09/30/24 at 08:30; Stop 10/30/24 at 08:29 Ondansetron HCl 4 mg Q6H PRN IV; Start 09/30/24 at 08:30; Stop 10/30/24 at 08:29 Al Hydroxide/Mg Hydroxide 30 ml Q6H PRN PO; Start 09/30/24 at 08:30; Stop 10/30/24 at 08:29 Lactulose 20 gm BID PRN PO; Start 09/30/24 at 08:30; Stop 10/30/24 at 08:29 Nitroglycerin 0.4 mg PROTOCOL PRN SL; Start 09/30/24 at 08:30; Stop 10/30/24 at 08:29 Guaifenesin/ Dextromethorphan 10 ml Q4H PRN PO; Start 09/30/24 at 08:30; Stop 10/30/24 at 08:29 Famotidine 20 mg BID IV; Start 09/30/24 at 09:00; Stop 09/30/24 at 08:32; Status DC Guaifenesin 200 mg Q4H PRN PO; Start 09/30/24 at 08:30; Stop 10/30/24 at 08:29 Docusate Sodium 100 mg BID PRN PO; Start 09/30/24 at 08:30; Stop 10/30/24 at 08:29 Polyethylene Glycol 17 gm DAILY PRN PO; Start 09/30/24 at 08:30; Stop 10/30/24 at 08:29 Artificial Tears 1 DROP Q2H PRN OP; Start 09/30/24 at 08:30; Stop 10/30/24 at 08:29 Benzocaine 1 each Q2H PRN MM; Start 09/30/24 at 08:30; Stop 10/30/24 at 08:29 Insulin Human Lispro INSULIN SLIDING SCAL... ACHS SQ; Start 09/30/24 at 11:30; Stop 10/01/24 at 18:18; Status DC Amiodarone HCl 200 mg BID PO Last administered on 10/05/24at 09:07; Start 09/30/24 at 21:00; Stop 10/30/24 at 20:59 Apixaban 5 mg BID PO Last administered on 09/30/24at 21:29; Start 09/30/24 at 21:00; Stop 10/01/24 at 10:20; Status DC Aripiprazole 2 mg DAILY PO; Start 10/01/24 at 09:00; Stop 09/30/24 at 10:37; Status DC Ferrous Fumarate 324 mg DAILY PO Last administered on 10/05/24at 09:08; Start 10/01/24 at 09:00; Stop 10/31/24 at 08:59 Sertraline HCl 50 mg BID PO Last administered on 10/05/24at 09:07; Start 09/30/24 at 21:00; Stop 10/30/24 at 20:59 Temazepam 15 mg HS PO Last administered on 10/04/24at 20:43; Start 09/30/24 at 21:00; Stop 10/30/24 at 20:59 Atorvastatin Calcium 20 mg HS PO Last administered on 10/04/24at 20:43; Start 09/30/24 at 21:00; Stop 10/30/24 at 20:59 Miscellaneous Medication 1 tab HS PO; Start 09/30/24 at 21:00; Stop 09/30/24 at 10:39; Status DC Pharmacy Profile Note 1 each AD MISC; Start 10/01/24 at 00:30; Stop 10/01/24 at 07:52; Status DC Enoxaparin Sodium 35 mg DAILY SQ Last administered on 10/03/24at 09:18; Start 10/01/24 at 17:00; Stop 10/31/24 at 16:59 Aripiprazole 2 mg HS PO; Start 10/02/24 at 21:00; Stop 10/03/24 at 09:41; Status DC Vancomycin HCl 1 gm ONCALL ONCE IV; Start 10/04/24 at 06:00; Stop 10/04/24 at 06:01; Status DC Vancomycin HCl 500 ml @ As Directed STK-MED ONCE IV; Start 10/04/24 at 13:54; Stop 10/04/24 at 13:54; Status DC Lidocaine HCl 50 ml STK-MED ONCE .ROUTE; Start 10/04/24 at 13:54; Stop 10/04/24 at 13:54; Status DC Meperidine HCl 25 mg STK-MED ONCE .ROUTE; Start 10/04/24 at 13:55; Stop 10/04/24 at 13:55; Status DC Midazolam HCl 2 mg STK-MED ONCE .ROUTE; Start 10/04/24 at 13:55; Stop 10/04/24 at 13:55; Status DC Iohexol 50 ml STK-MED ONCE IV; Start 10/04/24 at 13:55; Stop 10/04/24 at 13:55; Status DC Bupivacaine HCl 2.5 mg STK-MED ONCE IJ; Start 10/04/24 at 13:55; Stop 10/04/24 at 13:56; Status DC Meperidine HCl 25 mg STK-MED ONCE .ROUTE; Start 10/04/24 at 14:10; Stop 10/04/24 at 14:10; Status DC Midazolam HCl 2 mg STK-MED ONCE .ROUTE; Start 10/04/24 at 14:10; Stop 10/04/24 at 14:10; Status DC Meperidine HCl 25 mg STK-MED ONCE .ROUTE; Start 10/04/24 at 14:36; Stop 10/04/24 at 14:36; Status DC Midazolam HCl 2 mg STK-MED ONCE .ROUTE; Start 10/04/24 at 14:37; Stop 10/04/24 at 14:37; Status DC Potassium Chloride 20 meq AD PRN PO; Start 10/05/24 at 08:00; Stop 11/04/24 at 07:59 Potassium Chloride 20 meq AD PRN PO Last administered on 10/05/24at 09:08; Start 10/05/24 at 08:00; Stop 11/04/24 at 07:59 LOUANN BLANKENSHIP MD Oct 05, 2024 11:06
--- NOTE | 2024-10-05 11:07 | HMCIMG ---
CHEST 2VWS REASON: S/P PERMANENT PACEMAKER COMPARISON: 09/30/2024 FINDINGS: Two views of the chest were obtained. Lungs are clear. Heart size is normal. There is no pulmonary vascular congestion. Mediastinum and bony thorax appear unremarkable. There is a bipolar pacemaker in place. There is no evidence of pneumothorax. IMPRESSION: 1. Pacemaker placement without evidence of pneumothorax.
[2024-10-05] MEDS ORDERED: TRAM50TA4 PO (11:09)
--- NOTE | 2024-10-05 11:27 | DS ---
[facility] DISCHARGE SUMMARY Date Patient Seen: Oct 05, 2024 Time of Visit: 11:27 Supervising Physician: Evan Cordova MD Primary Care Physician: Dr. Casitllo Outpatient Specialists: Dr. Blankenship Inpatient Consults: Dr. Blankenship, Dr. Vargas PROBLEM LIST: Atrial fibrillation with rapid ventricular response, resolved with diltiazem S/p cardiac ablation November 22, [address] Kenny S/p catheter ablation of the mid anterolateral right atrial focus with creation of cavotricuspid isthmus May 2024. Tachy-liliane syndrome S/P PPM implantation per Dr Blankenship on 10/04/24 Chronic diastolic heart failure- LVEF 55-60% in 09/20/2024 History of pericardial effusion with tamponade physiology S/p pericardial window Left bundle branch block HOSPITAL COURSE: HPI 09/30/24-This is a 63-year-old female with a history if AFib status post two ablations, sick sinus syndrome pending outpatient pacemaker who presented to the ED for evaluation of palpitations. Patient states was feeling dizzy Contin her check her blood pressure and found her heart rate in the 30s. States later her heart rate was in 150's range. She called her valve machine operator and was advised to come to the ED for evaluation. Patient was recently discharged on 09/21 with amiodarone 200 mg b.i.d., Eliquis 5 mg b.i.d. and diltiazem discontinued. She was pending an outpatient pacemaker on 09/24, however was unable to have it done at that time. She is now scheduled for ppm on 10/11/[address] Blankenship. Her labs on admission were unremarkable with WBC of 6, hemoglobin 13, creatinine 0.9 without electrolyte derangement. Her troponin was five, TSH is 1.8 and INR 0.9. Her UA was negative for acute infection. Patient had an echocardiogram on 09/20 which revealed an EF of 55 to 60% and severe left atrial dilation, otherwise within normal limits. Her CXR on admission was within normal limits. Patient's EKG on admission showed sinus tachycardia with heart rate of 150 and a left bundle branch block and ST elevation secondary to IV CD. Her repeat EKG showed first-degree AV block with resolution is sinus tachycardia. Patient is currently chest pain free, denies any palpitations, weakness oriented dizziness. She is now in normal sinus rhythm with a heart rate in the 70s after diltiazem bolus. Her oral cardizem was discontinued upon discharge of her last visit on 09/21 d/t sick sinus syndrome. Patient states is pending an outpatient pacemaker placement on 10/11/2023. Will consult cardiology given recurrence of symptoms and pending procedure. She was downgrade from the iCU to PCCU the next day with no event of afib with RVR overnight. She was shceduled for a PPM implantation for 10/04/24 No major events over the course of her hospitalization. She Remained SR for the most part except for 10/03/24 when HR per tele was Sinus liliane in the 50's. She was asymptomatic. Amiodarone was placed on hold for the am that day. She underwent PPM implantation on 10/04/24 with no major overnight events. 10/06/24- today pt is awake alert and oriented x3 in good spirits. per tele she is pace rythm in the 60's. she is hemodynamically stable and afebrile.Dressing to left side of chest clean D&I. no evidence of hematoma, redness or swelling. She has been cleared per cardiology to be discharged with specific instructions to Restart her Eliquis on Tuesday10/07/24 evening. Pt to Continue amiodarone 200 mg b.i.d. with decrease to 200 mg daily as an outpatient. She is to follow up with cardiology in 7-10 days and all this was reminded to her on discharge by me. pt verbalized understanding and in agreement with POC. Labs were unremarkable. CXR : Pacemaker in place without evidence of pneumothorax ACTIVE PROBLEM LIST FOR THE HOSPITALIZATION: CHRONIC PROBLEMS: continue previous management per PCP unless otherwise indicated EDITOR NEWS FINDINGS/RECOMMENDATIONS: [ ] Per cardiology dr Blankenship: 1. Patient can be discharged home today 2. Continue amiodarone 200 mg b.i.d. with decrease to 200 mg daily as an outpatient 3. Some of the atrial therapies were turned on under device. Some of them were deferred to the outpatient setting once the implant is stable in order to avoid inappropriate ventricular pacing in the event of lead dislodgement. 4. Resume Eliquis on Tuesday evening 5. Follow up with me and in our device clinic in 7-10 days 6. Follow up with Dr. Maria A Pascal in 2-3 weeks. 7. Antiarrhythmic therapy will be deferred until we see her in the office and as has her atrial arrhythmias via the diagnostics of her device. PROCEDURES: as mentioned above Signed PATIENT: ADELFO SANCHEZ MR#: [id number] : 1960 SEX: F AGE: 63 LOCATION: 2DH ORDER 2300 STATUS: ADM IN REPORT#: [id number] SERVICE 0600 REASON: S/P PERMANENT PACEMAKER ORDERING PHYSICIAN: LOUANN BLANKENSHIP MD PROCEDURE: CXR2VW - CHEST 2VWS CHEST 2VWS REASON: S/P PERMANENT PACEMAKER COMPARISON: 09/30/2024 FINDINGS: Two views of the chest were obtained. Lungs are clear. Heart size is normal. There is no pulmonary vascular congestion. Mediastinum and bony thorax appear unremarkable. There is a bipolar pacemaker in place. There is no evidence of pneumothorax. IMPRESSION: 1. Pacemaker placement without evidence of pneumothorax. DICTATED BY: TIESHA AGUILAR MD DATE: 10/05/241103 ELECTRONICALLY SIGNED BY: TIESHA AGUILAR MD DATE: 10/05/24 1107 Signed PATIENT: ADELFO SANCHEZ MR#: [id number] : 1960 SEX: F AGE: 63 LOCATION: ED ORDER 0741 STATUS: REG ER REPORT#: [id number] SERVICE 0740 REASON: Shortness of breath ORDERING PHYSICIAN: MADI FRANK MD PROCEDURE: CXR1VW - CHEST 1VW Exam Type: CHEST 1VW Clinical Information: Shortness of breath Comparison: None Findings: The lungs are clear of infiltrates. The heart is enlarged. Bony and soft tissue structures of the chest wall are unremarkable. IMPRESSION: Cardiomegaly. Clear lungs. DICTATED BY: SKYLER ALMODOVAR MD DATE: 09/30/24827 ELECTRONICALLY SIGNED BY: SKYLER ALMODOVAR MD DATE: 09/30/24 08 Pt hemodynamically stable and afebrile at time of discharge. PCP notified of patients admission, hospital course and discharge. New Medications: Tramadol Hcl (Tramadol HCl) 50 Mg Tablet 50 MG PO Q6HPRN PRN for PAIN, #15 TAB 0 Refills Continued Medications: Amiodarone HCl (Amiodarone HCl) 200 Mg Tablet 200 MG PO BID, #60 TAB 3 Refills Apixaban (Eliquis) 5 Mg Tablet 1 TAB PO BID for 30 Days, #60 TAB 0 Refills Aripiprazole (Aripiprazole) 5 Mg Tablet 2 MG PO DAILY, TAB [Crestor] () 10 MG PO HS Ferrous Fumarate (Hemocyte) 324 Mg (106 Mg Iron) Tablet 324 MG PO DAILY, TAB Rosuvastatin Calcium (Rosuvastatin Calcium) 10 Mg Tablet 10 MG PO HS, TAB Sertraline HCl (Sertraline HCl) 100 Mg Tablet 1 TAB PO HS for 30 Days, #30 TAB 0 Refills Sertraline HCl (Sertraline HCl) 50 Mg Tablet 50 MG PO BID, TAB Temazepam (Temazepam) 15 Mg Capsule 1 CAP PO HS for 30 Days, #30 CAP 0 Refills PHYSICAL EXAM: GENERAL: alert, weak, awake oriented x 3 HEENT: EOMI, Sclera non icteric, moist mucosa NECK: Supple, no JVD, trachea midline LUNGS: Clear breath sounds bilaterally. No wheezes. dressing to left chest wall Clean dry and intact. HEART: Regular rate and rhythm. Normal S1 and S2, without murmurs ABD: Abdomen soft, nontender. Bowel sounds present EXT: No clubbing cyanosis or edema. left sling to left arm. NEURO: Alert and oriented to person, follows commands FOLLOW-UP: Follow up with Cardiology Dr Blankenship in device clinic in 7-10 days Follow up with Dr. Maria A Pascal in 2-3 weeks. Follow up with PCP in 1-3days. RECOMMENDATIONS: See Discharge Instructions This case was seen and discussed with my supervising physician. More than 30 minutes spent on discharge process, including evaluation of the patient, discussion with nursing staff, medication reconciliation and follow-up appointments KEMAR ROWE Oct 05, 2024 11:27
[2024-10-05] MEDS: MAGNESIUM 2GM PREMIX 50ML 50 ML IV PRN (11:54)
--- NOTE | 2024-10-05 13:36 | NUR ---
IM Letter Patient is a possible discharge to home. IM Letter signed. Patient states feels ready to discharge. Addendum: 10/05/24 at 1336 by PATRICIA YOUSSEF CM Amended: Links added.
--- NOTE | 2024-10-05 14:45 | NUR ---
DISCHARGE Discharge instructions given to patient. Patient verbalized knowledge and understanding. Patient received pacemaker card from [facility] call center representative. Patient's personal belongings gathered and assured to be back with patient. Patient escorted via wheelchair by this RN. Patient discharged now.
== END 2024-10-05 14:55 | disposition home or self-care (01) | DRG 243 ==
LOC: EDH 07:26 → OBSVTOIN 08:26 → EDHIP 08:26 → 2DH 14:39
PROVIDERS: ADMIT Internal Medicine Pulmonary Disease; ATTEND Internal Medicine Pulmonary Disease
PROC: 02H63JZ Insertion of Pacemaker Lead into Right Atrium, Percutaneous Approach (ICD-10-PCS; principal; 2024-09-30)
PROC: 0JH606Z Insertion of Pacemaker, Dual Chamber into Chest Subcutaneous Tissue and Fascia, Open Approach (ICD-10-PCS; 2024-09-30)
PROC: 02HK3JZ Insertion of Pacemaker Lead into Right Ventricle, Percutaneous Approach (ICD-10-PCS; 2024-09-30)
DX: I48.19 Other persistent atrial fibrillation (principal); I50.32 Chronic diastolic (congestive) heart failure; I49.5 Sick sinus syndrome; I47.19 Other supraventricular tachycardia; I11.0 Hypertensive heart disease with heart failure; I44.7 Left bundle-branch block, unspecified; F41.9 Anxiety disorder, unspecified; E78.5 Hyperlipidemia, unspecified; F32.A Depression, unspecified; Z79.01 Long term (current) use of anticoagulants; Z82.5 Family history of asthma and other chronic lower respiratory diseases; Z88.2 Allergy status to sulfonamides; Z88.5 Allergy status to narcotic agent; Z95.0 Presence of cardiac pacemaker; Z79.899 Other long term (current) drug therapy
CPT/HCPCS: 33208; 36415; 71045; 71046; 80048; 81001; 82948; 83735; 84443; 84484; 85025; 85027; 85610; 85730; 93005; 96374; 99156; 99157; 99285; C1785; G0378; J1650; J2175; J2250; J3370; J3475; J3490; Q9967; C1898; J0665

== ENCOUNTER 2025-07-26 18:53 | Emergency (ER) | payer OTHER ==
[~2025-07-26] VITALS: Ht 167.6 cm; Wt 59.0 kg
[~2025-07-26 18:53] MED LIST changes: -AMIO200T68 PO; +ARIP5TAB16 PO; -ARIP5TAB51 PO; -CRESTOR PO; -ROSU10TA72 PO; +ROSU40 PO; -SERT-439 PO
--- NOTE | 2025-07-26 19:19 | ERN ---
ED Note History of Present Illness Stated Complaint: HEAD INJURY ON ANTICOAGULANTS Chief Complaint: Head Injury Time Seen by MD: 18:55 Time Seen by Midlevel: 18:55 Dictation: The patient is a 64-year-old female with a history of heart disease, permanent pacemaker, chronic anticoagulation on Eliquis who presents to the emergency department with complaints of headache after a 5 lb frame fell on her head. The onset was 3 hours ago. Patient denies any falls, denies any LOC, denies any nausea or vomiting. Allergies: Coded Allergies: Sulfa (Sulfonamide Antibiotics) (Verified Allergy, Unknown, 10/03/19) codeine (Verified Allergy, Unknown, 10/03/19) Home Meds Reported Medications Temazepam (Temazepam) 15 Mg Capsule, 1 CAP PO HS for 30 Days, #30 CAP 0 Refills 11/17/24 Rosuvastatin Calcium (Crestor) 40 Mg Tab, 20 MG PO HS, TAB 11/17/24 Sertraline HCl (Sertraline HCl) 100 Mg Tablet, 1 TAB PO HS for 30 Days, #30 TAB 0 Refills 11/17/24 Aripiprazole (Abilify) 5 Mg Tablet, 1 TAB PO HS for 30 Days, #30 TAB 0 Refills 11/17/24 Apixaban (Eliquis) 5 Mg Tablet, 1 TAB PO BID for 30 Days, #60 TAB 0 Refills 09/14/24 Ferrous Fumarate (Hemocyte) 324 Mg (106 Mg Iron) Tablet, 324 MG PO DAILY, TAB 02/24/24 Past Medical History Past Medical History: A-Fib, Heart Disease Additional Past Medical Hx: HEART BLOCK, TACHY-BELINDA, PERICARDIAL WINDOW DUE TO TAMPONADE Surgical History: Pacer/AICD, Other Surgical History Other: CARDIAC ABLASION X4 Social History: Negative History: Not Applicable RN Note Reviewed/Agreed w/PFSH: Yes Review of System Dictation Constitutional: Negative for fever,chills, and weight loss Eyes: Negative for injury, pain,redness, and discharge ENT: Negative for injury,pain or swelling Cardiovascular: Negative for chest pain, palpitations, and edema Respiratory: Negative for shortness of breath, cough, and wheezing, Abdomen/GI: Negative for abdominal pain, nausea, vomiting, diarrhea, and constipation Back: Negative for injury and pain : Negative for injury, bleeding and discharge MS/Extremity: Negative for injury and deformity Skin: Negative for rash, and discoloration Neuro: Negative for weakness, numbness, tingling, and seizure positive for headache Psych: Negative for suicide ideation, homicidal ideation, and hallucinations Initial Vital Sign VS Vital Signs Date Time Temp Pulse Resp B/P (MAP) Pulse Ox O2 Delivery O2 Flow Rate FiO2 07/26/25 18:54 98.2 62 20 133/69 99 Room Air 0 07/26/25 19:45 21 Physical Exam Dictation Vital Signs reviewed General Appearance: Alert, oriented x 3, no acute distress, well developed, nourished. Head and Face: non-traumatic. No raccoon eyes, no gayle sign, no hematomas to scalp Eyes: PERRL, pink conjunctivas, eyelid no trauma, anterior chamber with arcus senilis. Ears: Pinnas intact and no signs of trauma or erythema ear canals clear and no discharge TM no erythema Nose: No discharge, no bleeding. Oropharynx: Mouth normal, tongue pink. pharynx clear,no erythema, tonsils no exudates, no abscesses noted, mucous memb aroldo moist Neck: Supple, non-tender, no thyromegaly, no masses, no JVD, no bruits Breast:Deferred Chest:No tenderness, no crepitus, no paradoxical movement, no retractions Lungs:Clear, well-ventilated, symmetric, no rales, no wheezing, no rhonchi, no s tridor, good breath sounds bilaterally Heart: Regular rate, regular rhythm, no murmur, no gallops Vascular: no peripheral edema, Abdomen: Soft, positive bowel sounds, nondistended, no guarding, nontender, no rebound, no masses no hepatomegaly, no splenomegaly, no St's sign, no hernias. Rectal: Deferred Genital: Deferred Neurological: Normal speech, motor function intact, sensory function intact , upper extremities equal in strength, lower extremities equal in strength Musculoskeletal: Neck nontender, full range of motion, back nontender, full range of motion, Extremities: nontender, full range of motion Skin: Color pink, dry, no turgor, no rash, no lacerations, no abrasions, no contusions. Lymphatic: Deferred Results (Laboratory/Radiology) Laboratory/Radiology Signed PATIENT: ADELFO SANCHEZ MR#: [id number] : 1960 SEX: F AGE: 64 LOCATION: [facility] ORDER 99 STATUS: REG ER REPORT#: [id number] SERVICE 58 REASON: headache trauma ORDERING PHYSICIAN: FORTINO SHAW PROCEDURE: HEAD WO - CT HEAD/BRAIN W/O CONTRAST EXAM: CT Head Without IV contrast. CLINICAL HISTORY: headache trauma TECHNIQUE: Axial computed tomography images of the head/brain without intravenous contrast. COMPARISON: None provided. FINDINGS: BRAIN: No evidence of acute hemorrhage. No mass lesion. No CT evidence for acute territorial infarct. No midline shift or extra-axial collections. VENTRICLES: No hydrocephalus. ORBITS: The orbits are unremarkable. SINUSES AND MASTOIDS: The paranasal sinuses and mastoid air cells are clear. BONES: No fracture. SOFT TISSUES: Unremarkable. IMPRESSION: No acute intracranial abnormality. /[place] Labs Reviewed?: Yes ED Course ED Course Orders Procedure Category Date Status Time Ct Head/Brain W/O CT 07/26/25 Resulted Contrast 18:59 Acetaminophen 500mg PHA 07/26/25 Complete Tab (Tylenol 500mg T 19:00 Current Medications Medications (Trade) Dose Ordered Sig/Braxton Route PRN Reason Start Time Stop Time Status Last Admin Dose Admin Acetaminophen (TYLenol 500MG TAB) 1,000 mg ONCE ONCE PO 07/26/25 19:00 07/26/25 19:12 DC 07/26/25 19:50 Vital Signs Date Time Temp Pulse Resp B/P (MAP) Pulse Ox O2 Delivery O2 Flow Rate FiO2 07/26/25 19:45 98.2 62 20 133/69 99 Room Air* 0 21 07/26/25 18:54 98.2 62 20 133/69 99 Room Air 0 Medical Decision Making MDM The patient is a 64-year-old female with a history of heart disease, permanent pacemaker, chronic anticoagulation on Eliquis who presents to the emergency department with complaints of headache after a 5 lb frame fell on her head. The onset was 3 hours ago. Patient denies any falls, denies any LOC, denies any nausea or vomiting. CT head was unremarkable. Patient continues neurologically intact. On physical exam patient is in no acute distress, nontoxic appearance, stable vital signs we will be discharged to follow up with PCP. Differential diagnosis: Head contusion, intracerebral hemorrhage, concussion Need for hospitalization: Patient does not meet criteria for hospitalization. There are no social concerns with this patient. DX & DISP Disposition: Discharge Departure Impression: Primary Impression: Head contusion Condition: Stable Additional Instructions: Your CT scan was unremarkable. You can take Tylenol as needed for pain at home. Follow up with the primary doctor in 1-2 days. If anything worsens please return to ER. FOLLOW-UP WITH PRIMARY CARE PROVIDER IN 1 TO 2 DAYS. TAKE MEDICATIONS DIRECTED HERE IN THE EMERGENCY ROOM. OKAY TO CONTINUE HOME MEDICATIONS UNLESS OTHERWISE DISCUSSED DURING YOUR VISIT IN THE EMERGENCY ROOM TODAY. RETURN TO YOUR NEAREST EMERGENCY ROOM IF SYMPTOMS WORSEN OR IF THERE IS NO IMPROVEMENT. CALL 911 IF YOU NEED IMMEDIATE ASSISTANCE. TAKE TYLENOL [id number] NEEDED AND IF NO CONTRAINDICATIONS ARE PRESENT. INCREASE ORAL HYDRATION. A WOUND CULTURE OR URINE CULTURE WAS ORDERED HERE IN THE EMERGENCY ROOM DEPARTMENT PLEASE FOLLOW-UP WITH PRIMARY CARE PROVIDER AND ADVISE THEM TO GET REPEAT PORTS FROM OUR FACILITY. IF YOU HAD ANY SHILOH WRAP/SPLINTS THAT WERE APPLIED HERE, PLEASE DO NOT REMOVE THEM UNTIL YOU SEE YOUR PRIMARY CARE OR SPECIALTY. Referrals: KYLIE SALES MD (PCP) Time of Disposition: 21:01 I have reviewed the case, and I agree with, Diagnosis and Plan FORTINO SHAW Jul 26, 2025 19:19
--- NOTE | 2025-07-26 20:54 | HMCIMG ---
EXAM: CT Head Without IV contrast. CLINICAL HISTORY: headache trauma TECHNIQUE: Axial computed tomography images of the head/brain without intravenous contrast. COMPARISON: None provided. FINDINGS: BRAIN: No evidence of acute hemorrhage. No mass lesion. No CT evidence for acute territorial infarct. No midline shift or extra-axial collections. VENTRICLES: No hydrocephalus. ORBITS: The orbits are unremarkable. SINUSES AND MASTOIDS: The paranasal sinuses and mastoid air cells are clear. BONES: No fracture. SOFT TISSUES: Unremarkable. IMPRESSION: No acute intracranial abnormality. /Gordon
[2025-07-26 21:06] VITALS: BP 127/62; PULSE 60; RESP 20; TEMP 98.2; O2SAT 99
== END 2025-07-26 21:07 | disposition home or self-care (01) ==
LOC: EDH 18:53
DX: S00.93XA Contusion of unspecified part of head, initial encounter (principal); I48.91 Unspecified atrial fibrillation; Z88.2 Allergy status to sulfonamides; Z88.5 Allergy status to narcotic agent; Z79.01 Long term (current) use of anticoagulants; Z95.810 Presence of automatic (implantable) cardiac defibrillator; W20.8XXA Other cause of strike by thrown, projected or falling object, initial encounter; Y93.89 Activity, other specified; Y92.89 Other specified places as the place of occurrence of the external cause; Y99.8 Other external cause status
CPT/HCPCS: 70450; 99284